=== PATIENT | female | born 1990 | race Two or more races ===

== ENCOUNTER → 2024-07-14 | Outpatient (CLI) | payer OTHER, MEDICAID, SELFPAY ==
--- NOTE | 2024-07-14 16:55 | XR_ITS ---
Examination: PA lateral chest 2 views Technique: Upright PA lateral chest 2 views Exam date and time: July 15, 2024 1703 hrs. Indications: Chest pain beginning 2 weeks ago. Findings: Normal heart size Lungs are clear. Mild diffuse thoracic degenerative disc disease Impression: No active disease
== END | disposition home or self-care (01) ==
LOC: CDIM 16:50
PROVIDERS: PCP Obstetrics & Gynecology; Referring Provider Obstetrics & Gynecology; Visit Provider Obstetrics & Gynecology
DX: R07.89 Other chest pain (principal)
CPT/HCPCS: 71046

== ENCOUNTER 2024-09-02 13:10 | Outpatient (AMB) | payer OTHER, MEDICAID, SELFPAY ==
[2024-09-02 13:26] VITALS: BP 112/68; PULSE 58; RESP 18; TEMP 36.2; O2SAT 98; BMI 29.1
--- NOTE | 2024-09-02 13:26 | AMB.OBINITIA ---
Vital Signs 09/02/24 13:26 Height 1.68 m Height Method Stated Weight 82.27 kg Weight Measurement Method Standing Scale BMI 29.1 BP 112/68 Blood Pressure Source Automatic Cuff Blood Pressure Location Left Upper Arm Position Sitting Respiration 18 Pulse 58 L Pulse Source Monitor Temp 97.2 F Temp Source Oral Pulse Oximetry (%) 98 Oxygen Delivery Method Room Air Allergies/Home Meds Allergies & Medications Allergies Penicillins Allergy (Intermediate, Verified 09/02/24 13:27) FAINTS Medication Reconciliation docusate sodium 100 mg capsule (Colace) 100 mg PO BID #60 caps 03/24/22 [Rx Confirmed 09/02/24] hydrocortisone 2.5 % topical cream with perineal applicator (Proctosol HC) 1 applic MN QDAY PRN hemorrhoids #30 appful 03/24/22 [Rx Confirmed 09/02/24] ibuprofen 800 mg tablet 800 mg PO Q6H PRN pain #90 tabs 03/24/22 [Rx Confirmed 09/02/24] lanolin 50 % topical ointment 1 applic topical TID PRN skin irritation #15 tubes 03/24/22 [Rx Confirmed 09/02/24] witch dorie 50 % topical pads (Tucks (witch dorie)) 1 pad topical BID #100 ea 03/24/22 [Rx Confirmed 09/02/24] Intake Visit Data Collection New Patient or Established: Established Patient (seen at [facility] within 3 years) Reason for Visit:: OBI Seen by Clinical Staff ONLY (RN/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 1. Little interest or pleasure in doing things: not at all 2. Feeling down, depressed, or hopeless: not at all Total score: 0 PHQ-9 3. Trouble falling or staying asleep, or sleeping too much: Not at all 4. Feeling tired or having little energy: Not at all 5. Poor appetite or overeating: Not at all 6. Feeling bad about yourself - or that you are a failure or have let yourself or your family down: Not at all 7. Trouble concentrating on things, such as reading the newspaper or watching television: Not at all 8. Moving or speaking so slowly that other people could have noticed? - Or the opposite - being so fidgety or restless that you have been moving around a lot more than usual: not at all 9. Thoughts that you would be better off or of hurting yourself in some way: Not at all Total score: 0 If you checked off any problems, how difficult have these problems made it for you to do your work, take care of things at home, or get along with other people?: not difficult at all Source: Developed by Drs. Francisco German, Jasmin Machado, David Anne and colleagues, with an educational marlon from [employer]. Depression screen completed yes Social History Living Situation History Marital Status: Lives With: Family Housing: House Tobacco History Smoking Status: Never smoker Second Hand Smoke Exposure: No Alcohol History Alcohol Intake: Never Domestic Abuse History Do You Feel Safe at Home: Yes History of Present Illness HPI Narrative Evelin Venegas is a 34-year-old 4 para 3003 who presents for her first early visit after a positive home test. She reports her last menstrual period started on July 02, 2024, placing her at 8 weeks and 6 days gestation with an estimated due date of April 08, 2025. The patient has a history of three prior full-term vaginal deliveries. She required fertility treatment for her first in 2017 but denies any other major gynecologic history or problems during her previous pregnancies. Evelin mentions a history of polycystic ovary syndrome (PCOS), which has caused irregular menstrual cycles in the past. She notes that for the six months prior to this , her cycles were regular with an average length of 32 days. Evelin reports mild nausea, particularly when she goes without food for a while. She denies any severe symptoms at this time. She is currently taking vitamins. During her last , she was close to developing gestational diabetes but was managed with diet alone and did not require medication. Obstetric History - GTPAL: G4 T3 L3 - Current : - Gestational age: 8 weeks 6 days by last menstrual period - Estimated due date: April 08, 2025 - history: - 3 prior vaginal deliveries, all at full term - Last : Close to having gestational diabetes, managed with diet only - First in 2017: Required fertility treatment Medical History - Polycystic ovary syndrome (PCOS) Medications and Supplements - vitamins Social History - Children: Has three children aged 6, 4, and 2 years old Review of Systems Gastrointestinal: Positive for mild nausea when going without food for a while. 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 Medical History Past Medical History: No Hx Neurological Disorders, No Hx Breast Cancer, No Hx Cardiac Disorders, No Hx Cancer, No Hx Blood Disorders, No Hx Anemia, No Hx Gastrointestinal Disorders, No Hx Renal Disease, No Hx Diabetes Mellitus Type 1 and No Hx Diabetes Mellitus Type 2 OB Initial Visit Menstrual History Menstrual reliability: definite Flow: normal Menstrual regularity: regular Monthly: Yes Age at menarche: 14 On control pills at conception: No OB History : 4 Para: 3 Hx # Pregnancies: 0 Hx Total # of Abortions (Spontaneous & Elective): 0 # of Living Children: 3 Delivery History 1st : date: 02/12/18 sex: female Delivery type: vaginal weight (lbs): 3628.739 g weight (oz): 56.699 g History of depression before or after : No 2nd : date: 12/15/19 sex: female Delivery type: vaginal weight (lbs): 3175.147 g weight (oz): 28.35 g History of depression before or after : No 3rd : date: 03/21/22 sex: female Delivery type: vaginal weight (oz): 3628.739 g Infection History & Risk Evaluation History of STDs: none HIV risk evaluation: low risk Hepatitis B risk evaluation: low risk Patient or partner has history of Genital Herpes: No Varicella/chicken pox status: immunized Genetic Screening & History Genetic Screening/Teratology Counseling - Includes patient, baby's father, or anyone in either family with: 1. Patient's age 35 years or older as of estimated date of delivery: No 2. Thalassemia (Panamanian, Estonian, Mediterranean, or Background); MCV less than 80: No 3. Neural Tube Defect (Meningomyelocele, Spina Bifida, or Anencephaly): No 4. Congenital Heart Defect: No 5. Down Syndrome: No 6. Ziyad-Sachs (Ashkenazi Alevism, Cajun, [place]): No 7. Shelton Disease (Ashkenazi Alevism): No 8. Familial Dysautonomia (Ashkenazi Alevism): No 9. Sickle Cell Disease or Trait (): No 10. Hemophilia or other blood disorders: No 11. Muscular Dystrophy: No 12. Cystic Fibrosis: No 13. [place]'s Chorea: No 14. Mental Retardation/Autism: No 15. Other inherited genetic or chromosomal disorder: No 16. Maternal Metabolic Disorder (EG,TYPE 1 Diabetes, PKU): No 17. Patient or baby's father had a child with defects not listed above: No 18. Recurrent loss or a stillbirth: No 19. Medications (including supplements, vitamins, herbs or otc drugs)/illicit/recreational drugs/alcohol since last menstrual period: No 20. Any other: No Infection History 1. Live with someone with TB or exposed to TB: No 2. Rash or viral illness since last menstrual period: No 3. Hepatitis B,C: No Other (see comments) Source: [employer] Review of Systems Review of Systems Systems Reviewed: All systems reviewed, normal except as documented Exam General General Appearance: alert, in no apparent distress and healthy appearing Head Head exam: atraumatic Neck Neck exam: Present normal inspection and trachea midline Chest Chest inspection: Present normal inspection and symmetric chest wall rise External exam: Present normal external exam; Absent tenderness Neuro Neurological exam: Present oriented X3 Psych Psychiatric exam: Present normal affect and normal mood Office Procedures OB Clinic LOC & Office Proc's Nursing/Assessment Patient Status: Established Patient OB Clinic Nursing Assessment: Medication Reconciliation, Update PMH in EMR and Vital Signs OB Clinic Coordination of Care: Education Complex Pt/Fam, Consent,records obtained, informed consent, Lab and Imaging orders, Results/Orders obtained and Staff clarify orders Established Patient Charge Established Patient Point Assignment: 85 Established Patient Point Charge: EP Level 3 (80-115) Assessment & Plan Diagnosis / Problem List (1) Supervision of high risk , unspecified, first trimester: Status: Acute Plan Evelin Venegas is a 34-year-old presenting for early visit with positive home test, history of 3 prior full-term vaginal deliveries, and PCOS. Intrauterine Assessment: Patient reports positive home test. LMP on July 04, 2024, placing her at 8 weeks and 6 days gestation with MERI of April 08, 2025. However, portable ultrasound shows measurements consistent with 7 weeks and 3 days gestation. heartbeat visualized at 164 bpm, which is within normal range. Patient has history of PCOS with irregular cycles, which may account for the discrepancy between LMP-based and ultrasound-based gestational age. Further evaluation with a formal ultrasound is needed to confirm accurate dating. Plan: - Order formal ultrasound for accurate dating - Order comprehensive labs including genetic screening - Continue vitamins - Scheduled follow-up appointment to review ultrasound and lab results History of gestational diabetes Assessment: Patient reports being close to developing gestational diabetes during her last but was managed with diet alone without requiring medication. Given this history, she may be at increased risk for gestational diabetes in the current . Plan: - Monitor for signs of gestational diabetes during care - Include glucose screening in lab panel Mild nausea Assessment: Patient reports experiencing nausea when going without food for a while, but denies severe symptoms. Plan: - Recommend frequent small meals to manage nausea - Monitor symptoms and reassess need for anti-emetic medication at follow-up visits
== END 2024-09-02 14:04 | disposition home or self-care (01) ==
LOC: HODSOBC 13:10
PROVIDERS: PCP Obstetrics & Gynecology; Referring Provider Obstetrics & Gynecology; Supervising Provider Obstetrics & Gynecology; Visit Provider Obstetrics & Gynecology
DX: O09.291 Supervision of pregnancy with other poor reproductive or obstetric history, first trimester (principal); Z3A.08 8 weeks gestation of pregnancy; Z86.32 Personal history of gestational diabetes; Z88.0 Allergy status to penicillin
CPT/HCPCS: 76801; 99213; G0463

== ENCOUNTER → 2024-09-02 | Outpatient (CLI) | payer OTHER, MEDICAID, SELFPAY ==
--- NOTE | 2024-09-02 14:22 | XR_ITS ---
Examination: Complete OB ultrasound, less than 14 weeks, transabdominal Date and time of exam: September 02, 2024 1439 hours INDICATIONS: Positive test at the doctor's office today, assess viability Technique: Obstetrical ultrasound images less than 14 weeks performed via transabdominal imaging Findings: A normal shaped single intrauterine gestation is present in the uterus. pole 1.2 cm corresponds to 7 weeks 3 days gestational age Cardiac motion 160 BPM Intrauterine fundal area of fibroid degeneration 3.0 x 2.4 x 2.6 cm Ultrasonographic survey of visible and placental structures unremarkable. Amniotic fluid volume appears appropriate for this estimated gestational age. Right ovary 3.1 cm arterial flow Left ovary 3.0 cm arterial flow IMPRESSION: Viable intrauterine gestation 7 weeks 3 days.
== END | disposition home or self-care (01) ==
PROVIDERS: PCP Pediatrics Pediatric Rheumatology; Referring Provider Pediatrics Pediatric Rheumatology; Visit Provider Pediatrics Pediatric Rheumatology
DX: O36.80X0 Pregnancy with inconclusive fetal viability, not applicable or unspecified (principal); Z3A.01 Less than 8 weeks gestation of pregnancy
CPT/HCPCS: 76801

== ENCOUNTER 2024-10-07 15:23 | Outpatient (AMB) | payer OTHER, MEDICAID, SELFPAY ==
[2024-10-07 15:36] VITALS: BP 111/72; PULSE 62; RESP 17; TEMP 36.7; O2SAT 98; BMI 29.5
--- NOTE | 2024-10-07 15:36 | AMB.OBVISIT ---
Vital Signs 10/07/24 15:36 Height 1.68 m Height Method Stated Weight 83.178 kg Weight Measurement Method Standing Scale BMI 29.5 BP 111/72 Blood Pressure Source Automatic Cuff Blood Pressure Location Right Upper Arm Position Sitting Respiration 17 Pulse 62 Pulse Source Monitor Temp 98.1 F Temp Source Temporal Artery Scan Pulse Oximetry (%) 98 Oxygen Delivery Method Room Air Allergies/Home Meds Allergies & Medications Allergies Penicillins Allergy (Intermediate, Verified 10/07/24 15:37) FAINTS Medication Reconciliation ondansetron 4 mg disintegrating tablet 4 mg PO Q6H PRN nausea and vomiting 30 days #120 tabs 10/01/24 [Rx Confirmed 10/07/24] nitrofurantoin macrocrystal 100 mg capsule 100 mg PO BID 7 days #14 caps 10/07/24 [Rx] promethazine 25 mg tablet 25 mg PO QHS PRN nausea and vomiting 30 days #30 tabs 10/07/24 [Rx] Intake Visit Data Collection New Patient or Established: Established Patient (seen at [facility] within 3 years) Reason for Visit:: OBC Seen by Clinical Staff ONLY (RN/MA): No 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 1. Little interest or pleasure in doing things: not at all 2. Feeling down, depressed, or hopeless: not at all Total score: 0 PHQ-9 3. Trouble falling or staying asleep, or sleeping too much: Not at all 4. Feeling tired or having little energy: Not at all 5. Poor appetite or overeating: Not at all 6. Feeling bad about yourself - or that you are a failure or have let yourself or your family down: Not at all 7. Trouble concentrating on things, such as reading the newspaper or watching television: Not at all 8. Moving or speaking so slowly that other people could have noticed? - Or the opposite - being so fidgety or restless that you have been moving around a lot more than usual: not at all 9. Thoughts that you would be better off or of hurting yourself in some way: Not at all Total score: 0 If you checked off any problems, how difficult have these problems made it for you to do your work, take care of things at home, or get along with other people?: not difficult at all Source: Developed by Drs. Francisco German, Jasmin Machado, David Anne and colleagues, with an educational marlon from [employer]. 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 Patient reports cramping, nausea, or abdominal pain. Denies PURI, VC, and epigastric pain. - Evelin Venegas is a 34-year-old female, 4 para 3, presenting for a visit at 13 weeks and 6 days gestation. - Initial labs and screening have been performed, including: - Non-invasive testing (NIPT) - Blood typing and antibody screening - Infectious disease screening - Urine culture Care OB Visit Log OB Flowsheet Initial Weight: Not Recorded Date <del>?</del> EGA Weight BP Alb Glu CTX Pres Fundal ht FHR Mov Dilation Station Effacement Hx Notes Visit Note 10/07/24 <del>?</del> 13w 6d 83.178 kg 111/72 145 13w6d here for routine visit. IUP confirmed. NIPT pending. Labs reviewed: blood type O+, Ab screen neg, rubella immune, GC/CT neg, Hep B/C neg, RPR non-reactive. UA c/s positive for Enterococcus. Treat UTI per sensitivity, continue routine OB care, review NIPT when available. MERI Calculator Estimated Delivery Date Method Current WG Current Estimate 04/08/25 LMP (Certain) 13w 6d Other Estimates 04/18/25 Ultrasound #1 12w 3d Specific Issue/Plans Laboratory, Imaging, and Diagnostic Test Results - Initial labs: - Blood group: O positive - Antibody screen: Negative - Hepatitis B: Negative - Hepatitis C: Negative - RPR: Non-reactive - Rubella: Immune - Gonorrhea: Negative - Chlamydia: Negative - NIPT: Performed (results not specified) - Urine culture: Positive for Enterococcus (sensitivity list available) Exam General General Appearance: alert, in no apparent distress and healthy appearing Head Head exam: atraumatic Neck Neck exam: Present normal inspection and trachea midline Chest Chest inspection: Present normal inspection and symmetric chest wall rise External exam: Present normal external exam; Absent tenderness Neuro Neurological exam: Present oriented X3 Psych Psychiatric exam: Present normal affect and normal mood Office Procedures OB Clinic LOC & Office Proc's Nursing/Assessment Patient Status: Established Patient OB Clinic Nursing Assessment: Medication Reconciliation, Update PMH in EMR and Vital Signs OB Clinic Coordination of Care: Complex Care and Chronic Disease 1-5, Consent,records obtained, informed consent, Education Simp Pt/Fam, Results/Orders obtained and Staff clarify orders Special Needs: Heart tones Established Patient Charge Established Patient Point Assignment: 120 Established Patient Point Charge: EP Level 4 (120-155) Assessment & Plan Diagnosis / Problem List (1) UTI in : Status: Acute (2) Supervision of high risk , unspecified, first trimester: Status: Acute (3) Hyperemesis affecting , antepartum: Status: Acute (4) Hypothyroidism affecting , antepartum: Status: Acute (5) Sleep apnea in adult: Status: Acute Plan Evelin Venegas is a 34-year-old female at 13 weeks and 6 days gestation presenting for a visit with initial labs completed. Intrauterine at 13 weeks 6 days gestation Assessment: Patient is a 34-year-old at 13 weeks and 6 days gestation presenting for routine care. Initial labs have been performed, including NIPT. Blood type is O positive with a negative antibody screen. Patient is rubella immune. Gonorrhea and chlamydia testing is negative. Hepatitis B and C testing is negative. RPR is non-reactive. Plan: - Review NIPT results when available - Monitor progression - Continue routine care Positive urine culture for Enterococcus Assessment: Urine culture shows growth of Enterococcus species with a sensitivity list provided. Plan: - Review antibiotic sensitivity results - Initiate appropriate antibiotic treatment based on sensitivity - Follow up on treatment efficacy
== END 2024-10-07 16:22 | disposition home or self-care (01) ==
LOC: HODSOBC 15:23
PROVIDERS: PCP Pediatrics Pediatric Rheumatology; Referring Provider Pediatrics Pediatric Rheumatology; Supervising Provider Obstetrics & Gynecology; Visit Provider Obstetrics & Gynecology
DX: O09.891 Supervision of other high risk pregnancies, first trimester (principal); Z3A.13 13 weeks gestation of pregnancy; O23.41 Unspecified infection of urinary tract in pregnancy, first trimester; N39.0 Urinary tract infection, site not specified; B95.2 Enterococcus as the cause of diseases classified elsewhere; O21.0 Mild hyperemesis gravidarum; O99.281 Endocrine, nutritional and metabolic diseases complicating pregnancy, first trimester; E03.9 Hypothyroidism, unspecified; O99.351 Diseases of the nervous system complicating pregnancy, first trimester; G47.30 Sleep apnea, unspecified; Z88.0 Allergy status to penicillin
CPT/HCPCS: 99214; G0463

== ENCOUNTER 2024-11-04 13:53 | Outpatient (AMB) | payer OTHER, MEDICAID, SELFPAY ==
[2024-11-04 14:06] VITALS: BP 113/71; PULSE 60; RESP 17; TEMP 36.9; O2SAT 98; BMI 30.5
--- NOTE | 2024-11-04 14:06 | OBCLNT_ITS ---
Vital Signs 11/04/24 14:06 Height 1.68 m Height Method Stated Weight 86.296 kg Weight Measurement Method Standing Scale BMI 30.5 BP 113/71 Blood Pressure Source Automatic Cuff Blood Pressure Location Right Upper Arm Position Sitting Respiration 17 Pulse 60 Pulse Source Monitor Temp 98.4 F Temp Source Temporal Artery Scan Pulse Oximetry (%) 98 Oxygen Delivery Method Room Air Allergies/Home Meds Allergies & Medications Allergies Penicillins Allergy (Intermediate, Verified 12/31/24 15:58) FAINTS Medication Reconciliation levothyroxine 50 mcg tablet 50 mcg PO QDAY 30 days #30 tabs 11/05/24 [Rx Confirmed 12/31/24] Intake Visit Data Collection New Patient or Established: Established Patient (seen at [facility] within 3 years) Reason for Visit:: obc 17w6d / lab results Seen by Clinical Staff ONLY (RN/MA): No Artistic Director Required: No Do You Feel Safe at Home: Yes Authorities Contacted: N/A PCP or OBGYN visit in last 3 months: Yes Hx Now: Yes Are you currently on any form of Control: No Pain Present Currently: No Pain Scale Used: De Leon-Villareal/Numerical Pain scale:: 0 Smoking Status Smoking Status: Never smoker Questionnaires Covid-19 Vaccine Questionnaire Has patient been vacinated for Covid-19 Have you been vacinated for Covid-19: No PHQ-9 PHQ-2 Over the last 2 weeks, how often have you been bothered by any of the following problems? 1. Little interest or pleasure in doing things: not at all 2. Feeling down, depressed, or hopeless: not at all Total score: 0 PHQ-9 3. Trouble falling or staying asleep, or sleeping too much: Not at all 4. Feeling tired or having little energy: Not at all 5. Poor appetite or overeating: Not at all 6. Feeling bad about yourself - or that you are a failure or have let yourself or your family down: Not at all 7. Trouble concentrating on things, such as reading the newspaper or watching television: Not at all 8. Moving or speaking so slowly that other people could have noticed? - Or the opposite - being so fidgety or restless that you have been moving around a lot more than usual: not at all 9. Thoughts that you would be better off or of hurting yourself in some way: Not at all Total score: 0 If you checked off any problems, how difficult have these problems made it for you to do your work, take care of things at home, or get along with other people?: not difficult at all Source: Developed by Drs. Francisco German, Jasmin Machado, David Anne and colleagues, with an educational marlon from [employer]. 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 IUP confirmed. NIPT pending. Labs reviewed: blood type O+, Ab screen neg, rubella immune, GC/CT neg, Hep B/C neg, RPR non-reactive. UA c/s positive for Enterococcus. Treat UTI per se nsitivity, continue routine OB care, review NIPT when available. 11/04/24 -?-?-?-?-?-?-?-?-?-?-?-?- 17w 6d 86.296 kg 113/71 absent unknown 155 - Thyroid medication: - Stopped [employer] SU[employer]IST Thyroid in April- ry due to side effects (cold feet and hands) - Not currently on thyroid medication - Sleep apnea: - Recently diagnosed with mild sleep a pnea - Using CPAP machine - Reports history of PCOS - Start levothyroxine 50 mcg daily - Repeat thyroid function tests in 4 wee ks - Refer to maternal- medicine speci alist for thyroid management during - Add thyroid consult to existing appoin tment at [facility] on December 02 - Follow up in 4 weeks - Continue using CPAP machine for sleep apnea; adjust settings post-delivery - Manage PCOS in OB setting - Prescription to be filled at [facility] on [address] 12/02/24 -?-?-?-?-?-?-?-?-?--?-?-?- 21w 6d 87.09 kg 113/63 absent 145 at 21 weeks 6 days gestation, with ultrasound confirming appropriate growth (378 grams) and normal anatomy survey. Cervix measured 4.2 cm, indicating low risk for labor. Placenta posterior, no previa. position cephalic. Thyroid function tests reveal elevated TSH and low free T4, indicating suboptimal control of pre- existing hypothyroidism on current 50 mcg dose. Patient reports improved overall well-being. Rash noted on back, possibly heat-related or acne. History of sleep apnea managed with CPAP. heart rate 145 bpm. Plan - Recheck TSH, free T4, and A1c today - Lab slip provided for TSH, free T4, an d A1c - Follow-up ultrasound in 6 weeks - Follow-up appointment scheduled for [facility] - Follow-up in 4 weeks unless labs are a bnormal 12/31/24 -?-?-?-?-?-?-?-?-?-?-?-?- 26w 0d 89.471 kg 102/63 absent unknown 27 152 active - She reports being in the process of getting fitted for CPAP, having been contacted last week for the fitting. - Patient reports occasional episodes of lightheadedness. - She checks her blood pressure when f eeling lightheaded and notes it is usually on the lower end. - The lowest systolic blood pressure s he has recorded at home is 105 mmHg with diastolic readings ranging from 49-70 mmHg. - She reports good adherence to her pres cribed medications including levothyroxine, vitamins, and vitamin D. - Patient denies restricting salt intake and reports eating normal foods. - She [facility] views that could not be completed due to positioning. - Return for [facility] ultrasound on September 14, 2024 to complete anatomy survey - Continue current medications: levothyr oxine, vitamins, and vitamin D - Increase electrolyte and sodium intake , consider using liquid IV once daily - Maintain adequate fluid intake - Follow-up appointment in 4 weeks - Subsequent appointments will be every 2 weeks after the next visit - Labs to be done at next appointment MERI Calculator Estimated Delivery Date Method Current WG Current Estimate 04/08/25 LMP (Certain) 27w 6d Other Estimates 04/18/25 Ultrasound #1 26w 3d Specific Issue/Plans Laboratory, Imaging, and Diagnostic Test Results - Initial labs: - Blood group: O positive - Antibody screen: Negative - Hepatitis B: Negative - Hepatitis C: Negative - RPR: Non-reactive - Rubella: Immune - Gonorrhea: Negative - Chlamydia: Negative - NIPT: Performed (results not specified) - Urine culture: Positive for Enterococcus (sensitivity list available) Notes Visit Date: 12/31/24 Last Updated by: Otto Bruno MD Laboratory, Imaging, and Diagnostic Test Results - Hemoglobin A1c: 5.5 - TSH: 2.5 (target <4.5 in ) - Free T4: 0.78 - MFM ultrasound (September 08, 2024): - Single fetus at 20 weeks 3 days gestation - Composite gestational age by ultrasound: 20 weeks 6 days - Largest amniotic fluid pocket: 3.9 cm - Anatomy survey: within normal limits except suboptimal views due to position and maternal body habitus - Cervical length (transvaginal): 4.23 cm - Posterior placenta, no previa - Cephalic presentation - Normal uterus and adnexa Visit Date: 12/02/24 Last Updated by: Otto Bruno MD Dec 02 2024 - Ultrasound: - weight: 378 grams (appropriate for 21 weeks) - Anatomy survey: Normal - Cervix length: 4.2 cm - Placenta: Posterior, no previa - position: Head down - Uterus and ovaries: Normal - heart rate: 145 bpm Problem List - , 21 weeks and 6 days - Hypothyroidism - Sleep apnea - Abnormal thyroid function test Assessment & Plan Diagnosis / Problem List (1) Hypothyroidism affecting , antepartum: Status: Acute Plan Problem List - Hypothyroidism - - Obstructive sleep apnea, mild - Polycystic ovary syndrome Assessment Hypothyroidism: Patient presents with low T4 and high TSH levels, consistent with hypothyroidism. Previously on [employer] SU[employer]CIALIST Thyroid, discontinued in April-May due to side effects. status necessitates switch to levothyroxine. Mild sleep apnea: Diagnosed via sleep study, patient using CPAP machine. PCOS: Noted as a condition to be addressed in OB. Normal protein albumin levels for . Plan - Start levothyroxine 50 mcg daily - Repeat thyroid function tests in 4 weeks - Refer to maternal- medicine specialist for thyroid management during - Add thyroid consult to existing appointment at [facility] on December 02 - Follow up in 4 weeks - Continue using CPAP machine for sleep apnea; adjust settings post-delivery - Manage PCOS in OB setting - Prescription to be filled at [facility] on [address]. Progress Reviewed gestational age, growth, and heart rate. Planned frequent visits (every 2 weeks until 36 weeks, then weekly). 2. Instructed patient to monitor movements and report decreases immediately. 3. Testing Counseled on routine third-trimester labs per guidelines. Discussed potential need for ultrasound or monitoring based on risk factors. 4. Preeclampsia Precaution Educated on preeclampsia signs: severe headache, vision changes, right upper quadrant pain, sudden swelling. Advised urgent reporting of symptoms and discussed blood pressure monitoring if high risk. 5. Labor Precautions Reviewed labor signs: regular contractions, pelvic pressure, back pain, bleeding, or fluid leakage. Instructed to seek immediate care for these symptoms. 6. Lifestyle and Delivery Preparation Reinforced vitamins, nutrition, and safe activity. Discussed plan, pain management, and . Advised on labor preparation (e.g., hospital bag) and expectations. 7. Psychosocial Support Assessed emotional well-being and offered resources for mental health or parenting support.
== END 2024-11-04 14:51 | disposition home or self-care (01) ==
LOC: HODSOBC 13:53
PROVIDERS: PCP Pediatrics Pediatric Rheumatology; Referring Provider Pediatrics Pediatric Rheumatology; Supervising Provider Obstetrics & Gynecology; Visit Provider Obstetrics & Gynecology
DX: O09.892 Supervision of other high risk pregnancies, second trimester (principal); O99.282 Endocrine, nutritional and metabolic diseases complicating pregnancy, second trimester; E28.2 Polycystic ovarian syndrome; E03.9 Hypothyroidism, unspecified; G47.33 Obstructive sleep apnea (adult) (pediatric); O99.352 Diseases of the nervous system complicating pregnancy, second trimester; Z3A.17 17 weeks gestation of pregnancy; Z99.89 Dependence on other enabling machines and devices; Z79.890 Hormone replacement therapy; Z88.0 Allergy status to penicillin
CPT/HCPCS: 99214; G0463

== ENCOUNTER 2024-12-02 15:01 | Outpatient (AMB) | payer OTHER, MEDICAID, SELFPAY ==
[2024-12-02 15:21] VITALS: BP 113/63; PULSE 67; RESP 16; TEMP 36.2; O2SAT 98; BMI 30.8
--- NOTE | 2024-12-02 15:21 | AMB.OBVISIT ---
Vital Signs 12/02/24 15:21 Height 1.68 m Height Method Stated Weight 87.09 kg Weight Measurement Method Standing Scale BMI 30.8 BP 113/63 Blood Pressure Source Automatic Cuff Blood Pressure Location Left Upper Arm Position Sitting Respiration 16 Pulse 67 Pulse Source Monitor Temp 97.2 F Temp Source Oral Pulse Oximetry (%) 98 Oxygen Delivery Method Room Air Allergies/Home Meds Allergies & Medications Allergies Penicillins Allergy (Intermediate, Verified 12/02/24 15:22) FAINTS Medication Reconciliation levothyroxine 50 mcg tablet 50 mcg PO QDAY 30 days #30 tabs 11/05/24 [Rx Confirmed 12/02/24] Intake Visit Data Collection New Patient or Established: Established Patient (seen at [facility] within 3 years) Reason for Visit:: obc Seen by Clinical Staff ONLY (RN/MA): No Media/Instructional Designer Required: No Do You Feel Safe at Home: Yes Authorities Contacted: N/A PCP or OBGYN visit in last 3 months: Yes Date of Last PCP or OBGYN visit: 11/04/24 Hx Now: Yes Are you currently on any form of Control: No Pain Present Currently: No Pain Scale Used: De Leon-Villareal/Numerical Pain scale:: 0 Smoking Status Smoking Status: Never smoker Questionnaires Covid-19 Vaccine Questionnaire Has patient been vacinated for Covid-19 Have you been vacinated for Covid-19: Yes PHQ-9 PHQ-2 Over the last 2 weeks, how often have you been bothered by any of the following problems? 1. Little interest or pleasure in doing things: not at all 2. Feeling down, depressed, or hopeless: not at all Total score: 0 PHQ-9 3. Trouble falling or staying asleep, or sleeping too much: Not at all 4. Feeling tired or having little energy: Not at all 5. Poor appetite or overeating: Not at all 6. Feeling bad about yourself - or that you are a failure or have let yourself or your family down: Not at all 7. Trouble concentrating on things, such as reading the newspaper or watching television: Not at all 8. Moving or speaking so slowly that other people could have noticed? - Or the opposite - being so fidgety or restless that you have been moving around a lot more than usual: not at all 9. Thoughts that you would be better off or of hurting yourself in some way: Not at all Total score: 0 If you checked off any problems, how difficult have these problems made it for you to do your work, take care of things at home, or get along with other people?: not difficult at all Source: Developed by Drs. Francisco German, Jasmin Machado, David Anne and colleagues, with an educational marlon from [employer]. 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 IUP confirmed. NIPT pending. Labs reviewed: blood type O+, Ab screen neg, rubella immune, GC/CT neg, Hep B/C neg, RPR non-reactive. UA c/s positive for Enterococcus. Treat UTI per sensitivity, continue routine OB care, review NIPT when available. 12/02/24 <del>?</del> 21w 6d 87.09 kg 113/63 absent 145 at 21 weeks 6 days gestation, with ultrasound confirming appropriate growth (378 grams) and normal anatomy survey. Cervix measured 4.2 cm, indicating low risk for labor. Placenta posterior, no previa. position cephalic. Thyroid function tests reveal elevated TSH and low free T4, indicating suboptimal control of pre-existing hypothyroidism on current 50 mcg dose. Patient reports improved overall well-being. Rash noted on back, possibly heat-related or acne. History of sleep apnea managed with CPAP. heart rate 145 bpm. Plan - Recheck TSH, free T4, and A1c today - Lab slip provided for TSH, free T4, and A1c - Follow-up ultrasound in 6 weeks - Follow-up appointment scheduled for January 14 - Follow-up in 4 weeks unless labs are abnormal MERI Calculator Estimated Delivery Date Method Current WG Current Estimate 04/08/25 LMP (Certain) 22w 0d Other Estimates 04/18/25 Ultrasound #1 20w 4d Specific Issue/Plans Laboratory, Imaging, and Diagnostic Test Results - Initial labs: - Blood group: O positive - Antibody screen: Negative - Hepatitis B: Negative - Hepatitis C: Negative - RPR: Non-reactive - Rubella: Immune - Gonorrhea: Negative - Chlamydia: Negative - NIPT: Performed (results not specified) - Urine culture: Positive for Enterococcus (sensitivity list available) Notes Visit Date: 12/02/24 Last Updated by: Otto Bruno MD Dec 02 2024 - Ultrasound: - weight: 378 grams (appropriate for 21 weeks) - Anatomy survey: Normal - Cervix length: 4.2 cm - Placenta: Posterior, no previa - position: Head down - Uterus and ovaries: Normal - heart rate: 145 bpm Problem List - , 21 weeks and 6 days - Hypothyroidism - Sleep apnea - Abnormal thyroid function test Office Procedures OB Clinic LOC & Office Proc's Nursing/Assessment Patient Status: Established Patient OB Clinic Nursing Assessment: Medication Reconciliation and Update PMH in EMR OB Clinic Coordination of Care: Education Complex Pt/Fam, Consent,records obtained, informed consent, Lab and Imaging orders and Staff clarify orders Special Needs: Heart tones Established Patient Charge Established Patient Point Assignment: 95 Established Patient Point Charge: EP Level 3 (80-115) Assessment & Plan Diagnosis / Problem List (1) Sleep apnea in adult: Status: Acute (2) Hypothyroidism affecting , antepartum: Status: Acute (3) Hyperemesis affecting , antepartum: Status: Acute
== END 2024-12-02 15:56 | disposition home or self-care (01) ==
LOC: HODSOBC 15:01
PROVIDERS: Supervising Provider Obstetrics & Gynecology; Visit Provider Obstetrics & Gynecology
DX: O09.892 Supervision of other high risk pregnancies, second trimester (principal); O99.282 Endocrine, nutritional and metabolic diseases complicating pregnancy, second trimester; E03.9 Hypothyroidism, unspecified; O21.0 Mild hyperemesis gravidarum; O99.352 Diseases of the nervous system complicating pregnancy, second trimester; G47.30 Sleep apnea, unspecified; Z3A.21 21 weeks gestation of pregnancy; Z79.890 Hormone replacement therapy; Z88.0 Allergy status to penicillin
CPT/HCPCS: 99213; G0463

== ENCOUNTER 2024-12-31 15:39 | Outpatient (AMB) | payer OTHER, MEDICAID, SELFPAY ==
[2024-12-31 15:58] VITALS: BP 102/63; PULSE 62; RESP 17; TEMP 36.7; O2SAT 98; BMI 31.6
--- NOTE | 2024-12-31 15:58 | OBCLNT_ITS ---
Vital Signs 12/31/24 15:58 Height 1.68 m Height Method Stated Weight 89.471 kg Weight Measurement Method Standing Scale BMI 31.6 BP 102/63 Blood Pressure Source Automatic Cuff Blood Pressure Location Right Upper Arm Position Sitting Respiration 17 Pulse 62 Pulse Source Monitor Temp 98.0 F Temp Source Temporal Artery Scan Pulse Oximetry (%) 98 Oxygen Delivery Method Room Air Allergies/Home Meds Allergies & Medications Allergies Penicillins Allergy (Intermediate, Verified 12/31/24 15:58) FAINTS Medication Reconciliation levothyroxine 50 mcg tablet 50 mcg PO QDAY 30 days #30 tabs 11/05/24 [Rx Confirmed 12/31/24] Intake Visit Data Collection New Patient or Established: Established Patient (seen at [facility] within 3 years) Reason for Visit:: OBC Seen by Clinical Staff ONLY (RN/MA): No Assistant Housekeeping 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 1. Little interest or pleasure in doing things: not at all 2. Feeling down, depressed, or hopeless: not at all Total score: 0 PHQ-9 3. Trouble falling or staying asleep, or sleeping too much: Not at all 4. Feeling tired or having little energy: Not at all 5. Poor appetite or overeating: Not at all 6. Feeling bad about yourself - or that you are a failure or have let yourself or your family down: Not at all 7. Trouble concentrating on things, such as reading the newspaper or watching television: Not at all 8. Moving or speaking so slowly that other people could have noticed? - Or the opposite - being so fidgety or restless that you have been moving around a lot more than usual: not at all 9. Thoughts that you would be better off or of hurting yourself in some way: Not at all Total score: 0 If you checked off any problems, how difficult have these problems made it for you to do your work, take care of things at home, or get along with other people?: not difficult at all Source: Developed by Drs. Francisco German, Jasmin Machado, David Anne and colleagues, with an educational marlon from [employer]. 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 IUP confirmed. NIPT pending. Labs reviewed: blood type O+, Ab screen neg, rubella immune, GC/CT neg, Hep B/C neg, RPR non-reactive. UA c/s positive for Enterococcus. Treat UTI per se nsitivity, continue routine OB care, review NIPT when available. 12/02/24 -?-?-?-?-?-?-?-?-?-?-?-?- 21w 6d 87.09 kg 113/63 absent 145 at 21 weeks 6 days gestation, with ultrasound confirming appropriate growth (378 grams) and normal jazz antoni survey. Cervix measured 4.2 cm, indicating low risk for labor. Placenta posterior, no previa. position cephalic. Thyroid function tests reveal elevated TSH and low free T4, indicating suboptimal control of pre- existing hypothyroidism on current 50 mcg dose. Patient reports improved overall well-being. Rash noted on back, possibly heat-related or acne. History of sleep apnea managed with CPAP. heart rate 145 bpm. Plan - Recheck TSH, free T4, and A1c today - Lab slip provided for TSH, free T4, an d A1c - Follow-up ultrasound in 6 weeks - Follow-up appointment scheduled for [facility] - Follow-up in 4 weeks unless labs are a bnormal 12/31/24 -?-?-?-?-?-?-?-?-?-?-?-?- 26w 0d 89.471 kg 102/63 absent unknown 27 152 active - She reports being in the process of getting fitted for CPAP, having been contacted last week for the fitting. - Patient reports occasional episodes of lightheadedness. - She checks her blood pressure when f eeling lightheaded and notes it is usually on the lower end. - The lowest systolic blood pressure s he has recorded at home is 105 mmHg with diastolic readings ranging from 49-70 mmHg. - She reports good adherence to her pres cribed medications including levothyroxine, vitamins, and vitamin D. - Patient denies restricting salt intake and reports eating normal foods. - [facility] anatomy views that could not be completed due to positioning. - Return for [facility] ultrasound on September 14, 2024 to complete anatomy survey - Continue current medications: levothyr oxine, vitamins, and vitamin D - Increase electrolyte and sodium intake , consider using liquid IV once daily - Maintain adequate fluid intake - Follow-up appointment in 4 weeks - Subsequent appointments will be every 2 weeks after the next visit - Labs to be done at next appointment MERI Calculator Estimated Delivery Date Method Current WG Current Estimate 04/08/25 LMP (Certain) 26w 4d Other Estimates 04/18/25 Ultrasound #1 25w 1d Specific Issue/Plans Laboratory, Imaging, and Diagnostic Test Results - Initial labs: - Blood group: O positive - Antibody screen: Negative - Hepatitis B: Negative - Hepatitis C: Negative - RPR: Non-reactive - Rubella: Immune - Gonorrhea: Negative - Chlamydia: Negative - NIPT: Performed (results not specified) - Urine culture: Positive for Enterococcus (sensitivity list available) Notes Visit Date: 12/31/24 Last Updated by: Otto Bruno MD Laboratory, Imaging, and Diagnostic Test Results - Hemoglobin A1c: 5.5 - TSH: 2.5 (target <4.5 in ) - Free T4: 0.78 - MFM ultrasound (September 08, 2024): - Single fetus at 20 weeks 3 days gestation - Composite gestational age by ultrasound: 20 weeks 6 days - Largest amniotic fluid pocket: 3.9 cm - Anatomy survey: within normal limits except suboptimal views due to position and maternal body habitus - Cervical length (transvaginal): 4.23 cm - Posterior placenta, no previa - Cephalic presentation - Normal uterus and adnexa Visit Date: 12/02/24 Last Updated by: Otto Bruno MD Dec 02 2024 - Ultrasound: - weight: 378 grams (appropriate for 21 weeks) - Anatomy survey: Normal - Cervix length: 4.2 cm - Placenta: Posterior, no previa - position: Head down - Uterus and ovaries: Normal - heart rate: 145 bpm Problem List - , 21 weeks and 6 days - Hypothyroidism - Sleep apnea - Abnormal thyroid function test Office Procedures OBC Clinic LOC & Office Proc's Nursing/Assessment Patient Status: Established Patient OB Clinic Nursing Assessment: Medication Reconciliation, Update PMH in EMR and Vital Signs OB Clinic Coordination of Care: Complex Care and Chronic Disease 1-5, Education Complex Pt/Fam, Consent,records obtained, informed consent, Results/Orders obtained and Staff clarify orders Special Needs: Heart tones Established Patient Charge Established Patient Point Assignment: 125 Established Patient Point Charge: EP Level 4 (120-155) Assessment & Plan Diagnosis / Problem List (1) 26 weeks gestation of : Status: Acute (2) Obstructive sleep apnea (adult) (pediatric): Status: Acute (3) Hypothyroidism, unspecified: Status: Acute Plan Problem List - , 26 weeks and 0 days - Obstructive sleep apnea - Hypothyroidism Assessment 3 para 3 at 26 weeks 0 days gestation with a single fetus. Recent MFM ultrasound at 20 weeks 3 days showed normal anatomy survey with some suboptimal views due to body habitus. Cervix measured 4.23 cm transvaginally, indicating low risk for labor. Posterior placenta, no previa. Cephalic presentation with normal uterus and adnexa. Patient has a history of obstructive sleep apnea, awaiting CPAP fitting. Hypothyroidism, initially suboptimally controlled, now on 50mcg levothyroxine. Recent labs show TSH 2.5 and free T4 0.78, considered with in acceptable range for . A1c 5.5, negative for glucose screening. Patient reports occasional lightheadedness with low blood pressure readings, lowest systolic 105 and diastolic 49. Plan - Return for [facility] ultrasound on September 14, 2024 to complete anatomy survey - Continue current medications: levothyroxine, vitamins, and vitamin D - Increase electrolyte and sodium intake, consider using liquid IV once daily - Maintain adequate fluid intake - Follow-up appointment in 4 weeks - Subsequent appointments will be every 2 weeks after the next visit - Labs to be done at next appointment 1. Progress Reviewed gestational age, growth, and heart rate. Planned frequent visits (every 2 weeks until 36 weeks, then weekly). 2. Instructed patient to monitor movements and report decreases immediately. 3. Testing Counseled on routine third-trimester labs per guidelines. Discussed potential need for ultrasound or monitoring based on risk factors. 4. Preeclampsia Precaution Educated on preeclampsia signs: severe headache, vision changes, right upper quadrant pain, sudden swelling. Advised urgent reporting of symptoms and discussed blood pressure monitoring if high risk. 5. Labor Precautions Reviewed labor signs: regular contractions, pelvic pressure, back pain, bleeding, or fluid leakage. Instructed to seek immediate care for these symptoms. 6. Lifestyle and Delivery Preparation Reinforced vitamins, nutrition, and safe activity. Discussed plan, pain management, and . Advised on labor preparation (e.g., hospital bag) and expectations. 7. Psychosocial Support Assessed emotional well-being and offered resources for mental health or parenting support.
== END 2024-12-31 16:02 | disposition home or self-care (01) ==
LOC: HODSOBC 15:39
PROVIDERS: Supervising Provider Obstetrics & Gynecology; Visit Provider Obstetrics & Gynecology
DX: O09.892 Supervision of other high risk pregnancies, second trimester (principal); Z3A.26 26 weeks gestation of pregnancy; O99.352 Diseases of the nervous system complicating pregnancy, second trimester; G47.33 Obstructive sleep apnea (adult) (pediatric); O99.282 Endocrine, nutritional and metabolic diseases complicating pregnancy, second trimester; E03.9 Hypothyroidism, unspecified; Z79.890 Hormone replacement therapy; Z88.0 Allergy status to penicillin
CPT/HCPCS: 99214; G0463

== ENCOUNTER 2025-01-30 15:43 | Outpatient (AMB) | payer OTHER, MEDICAID, SELFPAY ==
--- NOTE | 2025-01-30 15:58 | OBCLNT_ITS ---
Vital Signs 01/30/25 15:59 Height 1.68 m Height Method Stated Weight 93.043 kg Weight Measurement Method Standing Scale BMI 32.9 BP 109/71 Blood Pressure Source Automatic Cuff Blood Pressure Location Left Upper Arm Position Sitting Respiration 18 Pulse 82 Pulse Source Monitor Temp 97.2 F Temp Source Oral Pulse Oximetry (%) 98 Oxygen Delivery Method Room Air Allergies/Home Meds Allergies & Medications Allergies Penicillins Allergy (Intermediate, Verified 12/31/24 15:58) FAINTS Medication Reconciliation levothyroxine 50 mcg tablet 50 mcg PO QDAY 30 days #30 tabs 01/30/25 [Rx] Intake Visit Data Collection New Patient or Established: Established Patient (seen at [facility] within 3 years) Reason for Visit:: OBC Seen by Clinical Staff ONLY (RN/MA): No Sizing Sprayer Required: No Do You Feel Safe at Home: Yes Authorities Contacted: N/A PCP or OBGYN visit in last 3 months: Yes Date of Last PCP or OBGYN visit: 12/31/24 Hx Now: Yes Are you currently on any form of Control: No Pain Present Currently: No Pain Scale Used: De Leon-Villareal/Numerical Pain scale:: 0 Smoking Status Smoking Status: Never smoker Immunizations Flu Vaccine in the Last 12 Months: No Flu Vaccine Exclusion Criteria: No Exclusion Criteria Questionnaires Covid-19 Vaccine Questionnaire Has patient been vacinated for Covid-19 Have you been vacinated for Covid-19: No PHQ-9 PHQ-2 Over the last 2 weeks, how often have you been bothered by any of the following problems? 1. Little interest or pleasure in doing things: not at all 2. Feeling down, depressed, or hopeless: not at all Total score: 0 PHQ-9 3. Trouble falling or staying asleep, or sleeping too much: Not at all 4. Feeling tired or having little energy: Not at all 5. Poor appetite or overeating: Not at all 6. Feeling bad about yourself - or that you are a failure or have let yourself or your family down: Not at all 7. Trouble concentrating on things, such as reading the newspaper or watching television: Not at all 8. Moving or speaking so slowly that other people could have noticed? - Or the opposite - being so fidgety or restless that you have been moving around a lot more than usual: not at all 9. Thoughts that you would be better off or of hurting yourself in some way: Not at all Total score: 0 If you checked off any problems, how difficult have these problems made it for you to do your work, take care of things at home, or get along with other people?: not difficult at all Source: Developed by Drs. Francisco German, Jasmin Machado, Daivd Anne and colleagues, with an educational marlon from [employer]. 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 IUP confirmed. NIPT pending. Labs reviewed: blood type O+, Ab screen neg, rubella immune, GC/CT neg, Hep B/C neg, RPR non-reactive. UA c/s positive for Enterococcus. Treat UTI per se nsitivity, continue routine OB care, review NIPT when available. 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 April- ry due to side effects (cold feet and hands) - Not currently on thyroid medication - Sleep apnea: - Recently diagnosed with mild sleep a pnea - Using CPAP machine - Reports history of PCOS - Start levothyroxine 50 mcg daily - Repeat thyroid function tests in 4 wee ks - Refer to maternal- medicine nela vang for thyroid management during - Add thyroid consult to existing appoin tment at [facility] on December 02 - Follow up in 4 weeks - Continue using CPAP machine for sleep apnea; adjust settings post-delivery - Manage PCOS in OB setting - Prescription to be filled at [facility] 12/02/24 -?-?-?-?-?-?-?-?-?-?-?-?- 21w 6d 87.09 kg 113/63 absent 145 at 21 weeks 6 days gestation, with ultrasound confirming appropriate growth (378 grams) and normal anatomy survey. Cervix measured 4.2 cm, indicating low risk for labor. Placenta posterior, no previa. position cephalic. Thyroid function tests reveal elevated TSH and low free T4, indicating suboptimal control of pre- existing hypothyroidism on current 50 mcg dose. Patient reports improved overall well-being. Rash noted on back, possibly heat-related or acne. History of sleep apnea managed with CPAP. heart rate 145 bpm. Plan - Recheck TSH, free T4, and A1c today - Lab slip provided for TSH, free T4, an d A1c - Follow-up ultrasound in 6 weeks - Follow-up appointment scheduled for [facility] - Follow-up in 4 weeks unless labs are a bnormal 12/31/24 -?-?-?-?-?-?-?-?-?-?-?-?- 26w 0d 89.471 kg 102/63 absent unknown 27 152 active - She reports being in the process of getting fitted for CPAP, having been contacted last week for the fitting. - Patient reports occasional episodes of lightheadedness. - She checks her blood pressure when f eeling lightheaded and notes it is usually on the lower end. - The lowest systolic blood pressure s he has recorded at home is 105 mmHg with diastolic readings ranging from 49-70 mmHg. - She reports good adherence to her pres cribed medications including levothyroxine, vitamins, and vitamin D. - Patient denies restricting salt intake and reports eating normal foods. - [facility] that could not be completed due to positioning. - Return for [facility] ultrasound on September 14, 2024 to complete anatomy survey - Continue current medications: levothyr oxine, vitamins, and vitamin D - Increase electrolyte and sodium intake , consider using liquid IV once daily - Maintain adequate fluid intake - Follow-up appointment in 4 weeks - Subsequent appointments will be every 2 weeks after the next visit - Labs to be done at next appointment MERI Calculator Estimated Delivery Date Method Current WG Current Estimate 04/08/25 LMP (Certain) 30w 2d Other Estimates 04/18/25 Ultrasound #1 28w 6d Specific Issue/Plans Laboratory, Imaging, and Diagnostic Test Results - Initial labs: - Blood group: O positive - Antibody screen: Negative - Hepatitis B: Negative - Hepatitis C: Negative - RPR: Non-reactive - Rubella: Immune - Gonorrhea: Negative - Chlamydia: Negative - NIPT: Performed (results not specified) - Urine culture: Positive for Enterococcus (sensitivity list available) Notes Visit Date: 12/31/24 Last Updated by: Otto Bruno MD Laboratory, Imaging, and Diagnostic Test Results - Hemoglobin A1c: 5.5 - TSH: 2.5 (target <4.5 in ) - Free T4: 0.78 - MFM ultrasound (September 08, 2024): - Single fetus at 20 weeks 3 days gestation - Composite gestational age by ultrasound: 20 weeks 6 days - Largest amniotic fluid pocket: 3.9 cm - Anatomy survey: within normal limits except suboptimal views due to position and maternal body habitus - Cervical length (transvaginal): 4.23 cm - Posterior placenta, no previa - Cephalic presentation - Normal uterus and adnexa Visit Date: 12/02/24 Last Updated by: Otto Bruno MD Dec 02 2024 - Ultrasound: - weight: 378 grams (appropriate for 21 weeks) - Anatomy survey: Normal - Cervix length: 4.2 cm - Placenta: Posterior, no previa - position: Head down - Uterus and ovaries: Normal - heart rate: 145 bpm Problem List - , 21 weeks and 6 days - Hypothyroidism - Sleep apnea - Abnormal thyroid function test Office Procedures OBC Clinic LOC & Office Proc's Nursing/Assessment Patient Status: Established Patient OB Clinic Nursing Assessment: Medication Reconciliation, Update PMH in EMR and Vital Signs OB Clinic Coordination of Care: Consent,records obtained, informed consent, Education Simp Pt/Fam, Lab and Imaging orders, Results/Orders obtained and Staff clarify orders Special Needs: Heart tones Established Patient Charge Established Patient Point Assignment: 110 Established Patient Point Charge: EP Level 3 (80-115) Assessment & Plan Diagnosis / Problem List (1) Hypothyroidism, unspecified: Status: Acute (2) Encounter for supervision of high risk in third trimester, antepartum: Status: Acute Plan Third trimester labs with TSH and T4. I refilled levothyroxine 50 mg daily. Discussed labor precautions. Patient has a follow-up with MFM in March scheduled. Return with OB in 3 weeks.
[2025-01-30 15:59] VITALS: BP 109/71; PULSE 82; RESP 18; TEMP 36.2; O2SAT 98; BMI 32.9
== END 2025-01-30 16:27 | disposition home or self-care (01) ==
LOC: HODSOBC 15:43
PROVIDERS: Supervising Provider Obstetrics & Gynecology; Visit Provider Obstetrics & Gynecology
DX: O09.893 Supervision of other high risk pregnancies, third trimester (principal); O99.283 Endocrine, nutritional and metabolic diseases complicating pregnancy, third trimester; E03.9 Hypothyroidism, unspecified; O99.353 Diseases of the nervous system complicating pregnancy, third trimester; G47.30 Sleep apnea, unspecified; Z3A.30 30 weeks gestation of pregnancy; Z79.890 Hormone replacement therapy; Z88.0 Allergy status to penicillin
CPT/HCPCS: 99213; G0463

== ENCOUNTER 2025-02-19 15:19 | Outpatient (AMB) | payer OTHER, MEDICAID, SELFPAY ==
[2025-02-19 15:40] VITALS: BP 123/74; PULSE 61; RESP 14; TEMP 36.4; O2SAT 98; BMI 33.5
--- NOTE | 2025-02-19 15:40 | OBCLNT_ITS ---
Vital Signs 02/19/25 15:40 Height 1.68 m Height Method Stated Weight 94.574 kg Weight Measurement Method Standing Scale BMI 33.5 BP 123/74 Blood Pressure Source Automatic Cuff Blood Pressure Location Left Upper Arm Position Sitting Respiration 14 Pulse 61 Pulse Source Monitor Temp 97.6 F Temp Source Oral Pulse Oximetry (%) 98 Oxygen Delivery Method Room Air Allergies/Home Meds Allergies & Medications Allergies Penicillins Allergy (Intermediate, Verified 02/19/25 15:41) FAINTS Medication Reconciliation levothyroxine 50 mcg tablet 50 mcg PO QDAY 30 days #30 tabs 02/19/25 [Rx] metronidazole 500 mg tablet 500 mg PO Q8H 3 days #9 tabs 02/19/25 [Rx] Immunizations Immunizations Flu Vaccine in the Last 12 Months: Yes Date of most recent flu vaccination: 02/19/25 Flu Vaccine Exclusion Criteria: Already Received Care OB Visit Log OB Flowsheet Initial Weight: Not Recorded Date -?-?-?-?-?-?-?-?--?-?-?-?- EGA Weight BP Alb Glu CTX Pres Fundal ht FHR Mov Dilation Station Effacement Hx Notes Visit Note 10/07/24 -?-?-?-?-?-?-?-?-?-?-?-?- 13w 6d 83.178 kg 111/72 145 13w6d here for routine visit. IUP confirmed. NIPT pending. Labs reviewed: blood type O+, Ab screen neg, rubella immune, GC/CT neg, Hep B/C neg, RPR non-reactive. UA c/s positive for Enterococcus. Treat UTI per se nsitivity, continue routine OB care, review NIPT when available. 11/04/24 -?-?-?-?-?-?-?-?-?-?-?-?- 17w 6d 86.296 kg 113/71 absent unknown 155 - Thyroid medication: - Stopped PHARMACY CONSULTANT Thyroid in April- ry due to side effects (cold feet and hands) - Not currently on thyroid medication - Sleep apnea: - Recently diagnosed with mild sleep a pnea - Using CPAP machine - Reports history of PCOS - Start levothyroxine 50 mcg daily - Repeat thyroid function tests in 4 wee ks - Refer to maternal- medicine speci alist for thyroid management during - Add thyroid consult to existing appoin tment at [facility] on December 02 - Follow up in 4 weeks - Continue using CPAP machine for sleep apnea; adjust settings post-delivery - Manage PCOS in OB setting - Prescription to be filled at [facility] on [address] 12/02/24 -?-?-?-?-?-?-?-?-?-?-?-?- 21w 6d 87.09 kg 113/63 absent 145 at 21 weeks 6 days gestation, with ultrasound confirming appropriate growth (378 grams) and normal anatomy survey. Cervix measured 4.2 cm, indicating low risk for labor. Placenta posterior, no previa. position cephalic. Thyroid function tests reveal elevated TSH and low free T4, indicating suboptimal control of pre- existing hypothyroidism on current 50 mcg dose. Patient reports improved overall well-being. Rash noted on back, possibly heat-related or acne. History of sleep apnea managed with CPAP. heart rate 145 bpm. Plan - Recheck TSH, free T4, and A1c today - Lab slip provided for TSH, free T4, an d A1c - Follow-up ultrasound in 6 weeks - Follow-up appointment scheduled for alma - Follow-up in 4 weeks unless labs are a bnormal 12/31/24 -?-?-?-?-?-?-?-?-?-?-?-?- 26w 0d 89.471 kg 102/63 absent unknown 27 152 active - She reports being in the process of getting fitted for CPAP, having been contacted last week for the fitting. - Patient reports occasional episodes of lightheadedness. - She checks her blood pressure when f eeling lightheaded and notes it is usually on the lower end. - The lowest systolic blood pressure s he has recorded at home is 105 mmHg with diastolic readings ranging from 49-70 mmHg. - She reports good adherence to her pres cribed medications including levothyroxine, vitamins, and vitamin D. - Patient denies restricting salt intake and reports eating normal foods. - She has a follow-up ultrasound sched ed for the for anatomy views that could not be completed due to positioning. - Return for [facility] ultrasound on September 14, 2024 to complete anatomy survey - Continue current medications: levothyr oxine, vitamins, and vitamin D - Increase electrolyte and sodium intake , consider using liquid IV once daily - Maintain adequate fluid intake - Follow-up appointment in 4 weeks - Subsequent appointments will be every 2 weeks after the next visit - Labs to be done at next appointment 01/30/25 -?-?-?-?-?-?-?-?-?-?-?-?- 30w 2d 93.043 kg 109/71 absent 30 153 ac tive Reports good movement. Denies leaking, bleeding, contractions. Patient wants to refill on her levothyroxine Third trimester labs today with an A1c and TSH and T4. Refill levothyroxine 50 mg daily. Was 60. Discussed labor precautions. Increase fluids. Return with OB in 3 weeks MERI Calculator Estimated Delivery Date Method Current WG Current Estimate 04/08/25 LMP (Certain) 33w 1d Other Estimates 04/18/25 Ultrasound #1 31w 5d 04/18/25 Ultrasound #2 31w 5d Specific Issue/Plans Laboratory, Imaging, and Diagnostic Test Results - Initial labs: - Blood group: O positive - Antibody screen: Negative - Hepatitis B: Negative - Hepatitis C: Negative - RPR: Non-reactive - Rubella: Immune - Gonorrhea: Negative - Chlamydia: Negative - NIPT: Performed (results not specified) - Urine culture: Positive for Enterococcus (sensitivity list available) Notes Visit Date: 12/31/24 Last Updated by: Otto Bruno MD Laboratory, Imaging, and Diagnostic Test Results - Hemoglobin A1c: 5.5 - TSH: 2.5 (target <4.5 in ) - Free T4: 0.78 - MFM ultrasound (September 08, 2024): - Single fetus at 20 weeks 3 days gestation - Composite gestational age by ultrasound: 20 weeks 6 days - Largest amniotic fluid pocket: 3.9 cm - Anatomy survey: within normal limits except suboptimal views due to position and maternal body habitus - Cervical length (transvaginal): 4.23 cm - Posterior placenta, no previa - Cephalic presentation - Normal uterus and adnexa Visit Date: 12/02/24 Last Updated by: Otto Bruno MD Dec 02 2024 - Ultrasound: - weight: 378 grams (appropriate for 21 weeks) - Anatomy survey: Normal - Cervix length: 4.2 cm - Placenta: Posterior, no previa - position: Head down - Uterus and ovaries: Normal - heart rate: 145 bpm Problem List - , 21 weeks and 6 days - Hypothyroidism - Sleep apnea - Abnormal thyroid function test Office Procedures OBC Clinic LOC & Office Proc's Nursing/Assessment Patient Status: Established Patient OB Clinic Nursing Assessment: Medication Reconciliation, Update PMH in EMR and Vital Signs OB Clinic Coordination of Care: Complex Care and Chronic Disease 1-5, Consent,re cords obtained, informed consent, Education Simp Pt/Fam, 1 Ins Authorization, Lab and Imaging orders, Results/Orders obtained and Staff clarify orders Special Needs: Heart tones Established Patient Charge Established Patient Point Assignment: 150 Injection/Vaccine Admin SQ Im Injection: Yes Immunizations flu vac ts (6mos up)-PF 45 mcg(15mcg x3)/0.5 mL IM syringe Performing Provider: Otto Bruno MD Performing Location: [facility] Administered by: Nurys Szymanski MA on 02/19/25 16:37 Dose Route Admin Location Dispensed Lot Number Expiration Date Pack age [facility] 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
== END 2025-02-19 16:16 | disposition home or self-care (01) ==
LOC: HODSOBC 15:19
PROVIDERS: Supervising Provider Obstetrics & Gynecology; Visit Provider Obstetrics & Gynecology
DX: O09.893 Supervision of other high risk pregnancies, third trimester (principal); O99.891 Other specified diseases and conditions complicating pregnancy; R19.7 Diarrhea, unspecified; O99.283 Endocrine, nutritional and metabolic diseases complicating pregnancy, third trimester; E03.9 Hypothyroidism, unspecified; Z3A.33 33 weeks gestation of pregnancy; Z23 Encounter for immunization; Z79.890 Hormone replacement therapy; Z88.0 Allergy status to penicillin
CPT/HCPCS: 90471; 90686; 96372; 99213; G0463; J9060

== ENCOUNTER 2025-03-09 03:59 | Emergency (ER) | payer OTHER, MEDICAID, SELFPAY ==
[2025-03-09 02:36] VITALS: BMI 35.9
[2025-03-09 02:38] VITALS: RESP 16; TEMP 36.8
[2025-03-09 02:55] VITALS: BP 133/76; PULSE 73; RESP 100; RESP 16; TEMP 36.8
[2025-03-09 04:10] VITALS: BMI 34.9
[2025-03-09 04:26] VITALS: BP 129/85; PULSE 62; RESP 18; TEMP 36.8; O2SAT 98
--- NOTE | 2025-03-09 04:42 | EKG_ITS ---
[facility] Test Date: 2025-03-09 Pat Name: FREDERICK LOPEZ Department: Room: - Gender: Female Medical Director: : 1990 Requested By: Corky Flores Order Number: [id number] Reading MD: Corky Flores Measurements Intervals [place] Rate: 63 P: 29 MS: 131 QRS: 89 QRSD: 96 T: 26 QT: 390 QTc: 401 Interpretive Statements SINUS RHYTHM Compared to ECG 11/29/2023 21:00:43 No significant changes /store/S0/[id number]/[id number].pdf
--- NOTE | 2025-03-09 04:45 | PD.EDRME ---
Rapid Medical Screening Exam RME Arrival date/time: 03/09/25 03:59 This is a case of 34-year-old female who came in in the emergency room due to shortness of breath and chest pain today patient is 34 weeks 4 para3 Chief Complaint: Flu Like Symptoms Time Seen by Provider: 03/09/25 04:38 Vital signs: Vital Signs Temperature 98.2 F 03/09/25 02:38 Respiratory Rate 16 03/09/25 02:38 Oxygen Delivery Method Room Air 03/09/25 02:38 Exam: Gravid uterus lungs sound is clear normal rate regular rhythm no murmur Clinical Impression: Shortness of breath chest pain
[2025-03-09 05:10] LABS: Basophils # (Auto) 0.0 Thou/mm3 (0.0-0.2); Basophils % (Auto) 0 % (0-2.5); Eosinophils # (Auto) 0.1 Thou/mm3 (0.0-0.5); Eosinophils % (Auto) 1 % (0-10); Hematocrit 36.9 % (36.0-46.0); Hemoglobin 11.9 g/dL (12.0-16.0); Immature Granulocytes Auto 0.02 Thou/mm3 (0.00-0.00); Lymphocytes # (Auto) 2.5 Thou/mm3 (1.0-4.8); Lymphocytes % (Auto) 33 % (10-50); Mean Corpuscular HGB Conc 32.2 g/dl (31.0-37.0); Mean Corpuscular Hemoglobin 29.0 pg (25.0-35.0); Mean Corpuscular Volume 90 fL (80-100); Monocytes # (Auto) 0.5 Thou/mm3 (0.0-0.8); Monocytes % (Auto) 6 % (0-12); Neutrophils # (Auto) 4.6 Thou/mm3 (1.8-7.7); Neutrophils % (Auto) 59 % (37-80); Nucleated Red Blood Cell # 0.00 Thou/mm3 (0.00-0.00); Nucleated Red Blood Cell % 0 /100 WBC (0); Platelet Count 236 Thou/mm3 (140-440); RDW Standard Deviation 43.8 fL (36.4-46.3); Red Blood Count 4.10 Miln/mm3 (4.00-5.20); White Blood Count 7.7 Thou/mm3 (3.6-11.0)
[2025-03-09 05:49] LABS: Alanine Aminotransferase < 7 U/L (10-49); Albumin, Serum 3.7 gm/dL (3.5-5.0); Albumin/Globulin Ratio 1.2 (1.2-2.2); Alkaline Phosphatase 96 U/L (46-116); Anion Gap 10 (7-16); Aspartate Amino Transferase 12 U/L (0-34); BUN/Creatinine Ratio 10 Ratio (12-20); Bilirubin,Total 0.3 mg/dL (0.3-1.2); Blood Urea Nitrogen 7 mg/dL (9-23); Calcium 9.3 mg/dL (8.3-10.6); Calcium (Corrected) 9.5 mg/dL (8.5-10.1); Carbon Dioxide 24.0 mMol/L (20.0-31.0); Chloride 105 mMol/L (98-107); Creatinine (Component) 0.7 mg/dL (0.6-1.3); Estimated Creatinine Clearance 131.7 mL/min (>60); Globulin 3.1 gm/dL (2.3-3.5); Glucose 96 mg/dL (74-106); Osmolality,Calculated 275 (275-295); Potassium 4.0 mMol/L (3.4-5.1); Sodium 139 mMol/L (136-145); Total Protein 6.8 gm/dL (5.7-8.2); Troponin I < 0.020 ng/mL (0.0-0.045); eGFR > 60 See Note
--- NOTE | 2025-03-09 06:25 | EDNOTE_ITS ---
ED General RME/HPI General Chief complaint: Flu Like Symptoms Stated complaint: LABOR EVALUATION Time Seen by Provider: 03/09/25 04:38 Arrival date/time: 03/09/25 03:59 RME / HPI RME / HPI narrative: 03/09/25 03:59 This is a case of 34-year-old female who came in in the emergency room due to shortness of breath and chest pain today patient is 34 weeks 4 para3 34-year-old female who is 34 weeks with history of asthma and hypothyroidism, presents with a 2-day history of shortness of breath mild cough and diarrhea this morning. She denies any current chest pain pressure tightness or heaviness. No history of blood clots in the past. Patient is 4 para 3. Exam: Gravid uterus lungs sound is clear normal rate regular rhythm no murmur Impression: Shortness of breath chest pain Related Data Home Medications ?Medication ?Instructions ?Recorded ?Confirmed albuterol sulfate 90 mcg/actuation 2 inh inhalation Q4 H PRN shortness 03/09/25 03/09/25 aerosol inhaler (Ventolin HFA) of breath or wheezing calcium phosphate,dibasic 77 1 tab PO DAILY 03/09/25 1 05/10/24 mg-vitamin D3 400 unit tablet prenat.vits,flory,fkm-uder-fcrsd 1 tab PO DAILY 03/09/25 03/09/25 Previous Rx's ?Medication ?Instructions ?Recorded levothyroxine 50 mcg tablet 50 mcg PO QDAY 30 days #30 tabs 02/19/25 Allergies Allergy/AdvReac Type Severity Reaction Status Date / Time Penicillins Allergy Intermediate FAINTS Verified 03/09/25 03:38 Review of Systems Review of Systems Systems Reviewed: All systems reviewed, normal except as documented Past Medical History Past Medical History RESPIRATORY: Positive Asthma GENITOURINARY: Positive Genitourinary Disorders (UTI'S) REPRODUCTIVE: Positive Previous Pregnancies ENDOCRINE: Positive Hypothyroidism PSYCHO/SOCIAL: Positive Anxiety OTHER HISTORY: Positive Hospitalization (CHILDBIRTH) and Chicken Pox Family History FAMILY HISTORY: Positive Family Respiratory Disorders (GRANDMOTHER: ASTHMA), Family Cardiac Disorders (SISTER HEART MURMUR, BROTHER (UNKNOWN)) and Family Gastrointestinal Problems (MOTHER-STOMACH ULCERS) Surgical History SURGICAL: Negative Section Social History SMOKING STATUS: Never smoker SECOND HAND EXPOSURE: No SUBSTANCE USE: does not use ED Exam Narrative Physical exam: Generally patient is alert not dyspneic or tachypneic with an O2 saturation of 98% on room air. Heart regular rate and rhythm, lungs clear to auscultation equal bilaterally, abdomen is gravid nontender, skin is warm pale and dry, extremities show no edema and capillary refill less than 2 seconds Course Quality Measures none Orders Category Date Time Status Place in Observation Status Routine Admission 03/09/25 02:36 Active Bedside COVID-19 Antigen Test NOW Care 03/09/25 06:24 Active Bedside Influenza A&B Antigen Test NOW Care 03/09/25 06:24 Completed Continuous Monitoring Routine Care 03/09/25 02:36 Ordered EKG (ED ONLY) *Do not use* NOW Care 03/09/25 04:43 Completed Non-Stress Test NOW Care 03/09/25 02:36 Active EKG (ED Only) Stat Exams 03/09/25 04:42 Draft ABO/RH Type Stat Lab 03/09/25 05:01 Completed CBC Stat Lab 03/09/25 05:01 Completed CMP [Comprehensive Metabolic Panel] Stat Lab 03/09/25 05:01 Completed D-Dimer Stat Lab 03/09/25 05:01 Completed Troponin I Stat Lab 03/09/25 05:01 Completed Urinalysis Stat Lab 03/09/25 06:00 Completed Vital Signs Vital signs: Vital Signs Temperature 98.2 F 03/09/25 02:38 Respiratory Rate 16 03/09/25 02:38 Oxygen Delivery Method Room Air 03/09/25 02:38 Discharge Plan Plan Patient Disposition: HOME (Self Care) Prescriptions/Referrals Prescriptions/Med Rec: No Action levothyroxine 50 mcg tablet 50 mcg PO QDAY 30 Days Qty: 30 6RF albuterol sulfate [Ventolin HFA] 90 mcg/actuation HFA aerosol inhaler 2 inh inhalation Q4H PRN (Reason: shortness of breath or wheezing) prenat.vits,flory,zoe-nxkv-wleqo Tablet 1 tab PO DAILY calcium phos,dibas-vitamin D3 77-400 mg-unit tablet 1 tab PO DAILY Referrals: Casimiro Kaur([facility])MD [Primary Care Provider, Family Practice] Problem List Clinical Impression: Dyspnea, Patient/Caregiver Discharge Instructions Other Activity Instructions:: Return to the OB department if you continue to have decreased or no movement. Take prescribed medications, as directed. Increase your fluid intake at home. Drink 10-12 bottles of water a day. Follow up with your OB provider at your next scheduled appointment. Additional Instructions: Return for worsening chest pain or shortness of breath. Continue current medications. Print Language: Afghan Stand Alone Forms: Winnie Award Info., Patient Portal Info Letter, Work/Release Restrictions MDM Narrative MDM hospital course (for use when minimal MDM required): I interpreted all labs. The workup was relatively unremarkable. Lungs are clear. Breathing is nonlabored. She is not tachypneic or tachycardic. O2 saturation is between 96 to 100% on room air. D-dimer slightly elevated at 655 with the upper end of normal here being 600. Through shared decision making, I discussed with the patient's the risks versus benefits of a CT angiogram of the chest. I think that the patient is low risk at this time of having a pulmonary embolism. Vital signs are stable without dyspnea or tachycardia. No tachypnea. Patient agrees with holding off on getting the CT angiogram of the chest at this time. She may return to the emergency room if condition worsens such as increasing chest pain or shortness of breath. Flu swabs are negative. COVID was negative. EKG shows normal sinus rhythm at a rate of 63 without right axis deviation. No ischemic changes. No ectopy. No change from previous EKG. Clinical Information Provided by: patient Medical Records reviewed [facility]
[2025-03-09 06:28] VITALS: BP 126/81; PULSE 97; RESP 20; TEMP 36.6; O2SAT 97
[2025-03-09 06:37] LABS: Collection Type, Urine Voided
[2025-03-09 07:24] LABS: Bilirubin,Urine Negative (Negative); Blood,Urine Negative (Negative); Clarity,Urine Clear (Clear/Hazy); Color,Urine Colorless (Lt Yel-Yel); Glucose, Urine Negative (Negative); Ketones,Urine Negative (Negative); Leukocyte Esterase,Urine Negative (Negative); Nitrite,Urine Negative (Negative); PH,Urine 6.5 (5.0-7.0); Protein,Urine Negative (Neg - Trace); RBC,Urine < 1 /hpf (0-3); Specific Gravity,Urine 1.008 (1.001-1.035); Squamous Epithelial Cell,Urine 1 /hpf (0-5); Urobilinogen,Urine Negative mg/dL (0.0-1.0); WBC,Urine < 1 /hpf (0-5)
[2025-03-09 07:40] LABS: D-Dimer 655 ng/mL (<600)
[2025-03-09 08:10] VITALS: BP 120/71; PULSE 63; RESP 16; TEMP 36.6; O2SAT 99
== END 2025-03-09 08:10 | disposition home or self-care (01) ==
LOC: SERX 04:21
PROVIDERS: Nurse Practitioner Family; Emergency Provider Emergency Medicine; PCP Family Medicine
DX: O99.513 Diseases of the respiratory system complicating pregnancy, third trimester (principal); R06.00 Dyspnea, unspecified; Z3A.34 34 weeks gestation of pregnancy
CPT/HCPCS: 36415; 59025; 80053; 81001; 84484; 84702; 85025; 85379; 86900; 86901; 87502; 87635; 93005; 99282

== ENCOUNTER 2025-03-10 14:55 | Outpatient (AMB) | payer OTHER, MEDICAID, SELFPAY ==
--- NOTE | 2025-03-10 15:20 | OBCLNT_ITS ---
Vital Signs 03/10/25 15:22 Height 1.65 m Height Method Stated Weight 96.729 kg Weight Measurement Method Standing Scale BMI 35.5 BP 115/75 Blood Pressure Source Automatic Cuff Blood Pressure Location Right Upper Arm Position Sitting Respiration 18 Pulse 63 Pulse Source Monitor Temp 97.8 F Temp Source Temporal Artery Scan Pulse Oximetry (%) 97 Oxygen Delivery Method Room Air Allergies/Home Meds Allergies & Medications Allergies Penicillins Allergy (Intermediate, Verified 03/10/25 15:22) FAINTS Medication Reconciliation levothyroxine 50 mcg tablet 50 mcg PO QDAY 30 days #30 tabs 02/19/25 [Rx Confirmed 03/10/25] albuterol sulfate 90 mcg/actuation aerosol inhaler (Ventolin HFA) 2 inh inhalation Q4H PRN shortness of breath or wheezing 03/09/25 [History Confirmed 03/10/25] calcium phosphate,dibasic 77 mg-vitamin D3 400 unit tablet 1 tab PO DAILY 03/09/25 [History Confirmed 03/10/25] prenat.vits,flory,qmd-lejc-idfde 1 tab PO DAILY 03/09/25 [History Confirmed 03/10/25] Immunizations Immunizations Flu Vaccine in the Last 12 Months: No Flu Vaccine Exclusion Criteria: No Exclusion Criteria Care OB Visit Log OB Flowsheet Initial Weight: Not Recorded Date -?-?-?-?-?-?-?-?-?-?-?-?- EGA Weight BP Alb Glu CTX Pres Fundal ht FHR Mov Dilation Station Effacement Hx Notes Visit Note 10/07/24 -?-?-?-?-?-?-?-?-?-?-?-?- 13w 6d 83.178 kg 111/72 145 13w6d here for routine visit. IUP confirmed. NIPT pending. Labs reviewed: blood type O+, Ab screen neg, rubella immune, GC/CT neg, Hep B/C neg, RPR non-reactive. UA c/s positive for Enterococcus. Treat UTI per se nsitivity, continue routine OB care, review NIPT when available. 11/04/24 -?-?-?-?-?-?-?-?-?-?-?-?- 17w 6d 86.296 kg 113/71 absent unknown 155 - Thyroid medication: - Stopped [employer] Thyroid in April- ry due to side effects (cold feet and hands) - Not currently on thyroid medication - Sleep apnea: - Recently diagnosed with mild sleep a pnea - Using CPAP machine - Reports history of PCOS - Start levothyroxine 50 mcg daily - Repeat thyroid function tests in 4 wee ks - Refer to maternal- medicine speci ciera for thyroid management during - Add thyroid consult to existing appoin tment at [facility] on December 02 - Follow up in 4 weeks - Continue using CPAP machine for sleep apnea; adjust settings post-delivery - Manage PCOS in OB setting - Prescription to be filled at [facility] 12/02/24 -?-?-?-?-?-?-?-?-?-?-?-?- 21w 6d 87.09 kg 113/63 absent 145 at 21 weeks 6 days gestation, with ultrasound confirming appropriate growth (378 grams) and normal anatomy survey. Cervix measured 4.2 cm, indicating low risk for labor. Placenta posterior, no previa. position cephalic. Thyroid function tests reveal elevated TSH and low free T4, indicating suboptimal control of pre- existing hypothyroidism on current 50 mcg dose. Patient reports improved overall well-being. Rash noted on back, possibly heat-related or acne. History of sleep apnea managed with CPAP. heart rate 145 bpm. Plan - Recheck TSH, free T4, and A1c today - Lab slip provided for TSH, free T4, an d A1c - Follow-up ultrasound in 6 weeks - Follow-up appointment scheduled for alma 15 - Follow-up in 4 weeks unless labs are a bnormal 12/31/24 -?-?-?-?-?-?-?-?-?-?-?-?- 26w 0d 89.471 kg 102/63 absent unknown 27 152 active - She reports being in the process of getting fitted for CPAP, having been contacted last week for the fitting. - Patient reports occasional episodes of lightheadedness. - She checks her blood pressure when f eeling lightheaded and notes it is usually on the lower end. - The lowest systolic blood pressure s he has recorded at home is 105 mmHg with diastolic readings ranging from 49-70 mmHg. - She reports good adherence to her pres cribed medications including levothyroxine, vitamins, and vitamin D. - Patient denies restricting salt intake and reports eating normal foods. - She has a follow-up ultrasound sched ed for the for anatomy views that could not be completed due to positioning. - Return for [facility] ultrasound on September 14, 2024 to complete anatomy survey - Continue current medications: levothyr oxine, vitamins, and vitamin D - Increase electrolyte and sodium intake , consider using liquid IV once daily - Maintain adequate fluid intake - Follow-up appointment in 4 weeks - Subsequent appointments will be every 2 weeks after the next visit - Labs to be done at next appointment 01/30/25 -?-?-?-?-?-?-?-?-?-?-?-?- 30w 2d 93.043 kg 109/71 absent 30 153 ac tive Reports good movement. Denies leaking, bleeding, contractions. Patient wants to refill on her levothyroxine Third trimester labs today with an A1c and TSH and T4. Refill levothyroxine 50 mg daily. Was 60. Discussed labor precautions. Increase fluids. Return with OB in 3 weeks 03/10/25 -?-?-?-?-?-?-?-?-?-?-?-?- 35w 6d 96.729 kg 115/75 absent cephalic 35 154 active Reports good movement. Denies leaking, bleeding, contractions. Reviewed TSH and T4 that were in normal range. Reports that breathing is normal and baby is active. Discussed labor precautions. Kick count twice a day. I reviewed parameters with patient. Discussed comfort measures to help with breathing such as sitting up and using a pillow to turn her to the side. GBS today. And return in a week OB check. And we did TSH T4 free T Discussed labor precautions. Kick count twice a day. I reviewed parameters with patient. Discussed comfort measures to help with breathing such as sitting up and using a pillow to turn her to the side. GBS today. And return in a week OB check. And we did TSH T4 free T, GBS MERI Calculator Estimated Delivery Date Method Current WG Current Estimate 04/08/25 LMP (Certain) 35w 6d Other Estimates 04/18/25 Ultrasound #1 34w 3d 04/18/25 Ultrasound #2 34w 3d Specific Issue/Plans Laboratory, Imaging, and Diagnostic Test Results - Initial labs: - Blood group: O positive - Antibody screen: Negative - Hepatitis B: Negative - Hepatitis C: Negative - RPR: Non-reactive - Rubella: Immune - Gonorrhea: Negative - Chlamydia: Negative - NIPT: Performed (results not specified) - Urine culture: Positive for Enterococcus (sensitivity list available) Notes Visit Date: 03/10/25 Last Updated by: Moriah Pfeiffer CNM thyroid: TSH:3.1, free T: 0.83, A1: 5.6, 1 hr gtt: wnl Visit Date: 12/31/24 Last Updated by: Otto Bruno MD Laboratory, Imaging, and Diagnostic Test Results - Hemoglobin A1c: 5.5 - TSH: 2.5 (target <4.5 in ) - Free T4: 0.78 - MFM ultrasound (September 08, 2024): - Single fetus at 20 weeks 3 days gestation - Composite gestational age by ultrasound: 20 weeks 6 days - Largest amniotic fluid pocket: 3.9 cm - Anatomy survey: within normal limits except suboptimal views due to position and maternal body habitus - Cervical length (transvaginal): 4.23 cm - Posterior placenta, no previa - Cephalic presentation - Normal uterus and adnexa Visit Date: 12/02/24 Last Updated by: Otto Bruno MD Dec 02 2024 - Ultrasound: - weight: 378 grams (appropriate for 21 weeks) - Anatomy survey: Normal - Cervix length: 4.2 cm - Placenta: Posterior, no previa - position: Head down - Uterus and ovaries: Normal - heart rate: 145 bpm Problem List - , 21 weeks and 6 days - Hypothyroidism - Sleep apnea - Abnormal thyroid function test Office Procedures OBC Clinic LOC & Office Proc's Nursing/Assessment Patient Status: Established Patient OB Clinic Nursing Assessment: Medication Reconciliation, Update PMH in EMR and Vital Signs OB Clinic Coordination of Care: Complex Care and Chronic Disease 1-5, Education Complex Pt/Fam, Consent,records obtained, informed consent, Lab and Imaging orders, Results/Orders obtained and Staff clarify orders Special Needs: Heart tones Miscellaneous Interventions: Culture Specimen Collection Established Patient Charge Established Patient Point Assignment: 155 Established Patient Point Charge: EP Level 4 (120-155) Assessment & Plan Diagnosis / Problem List (1) Encounter for supervision of high risk in third trimester, antepartum: Status: Acute Plan TSH, free T and T4 today. Discussed labs. Comfort measures for difficult respirations especially at night. Discussed kick count twice a day. Increase fluids. Continue levothyroxine 50 mg. Return in a week for OB check. GBS today Additional Plan Follow Up: 4 Weeks (obc)
[2025-03-10 15:22] VITALS: BP 115/75; PULSE 63; RESP 18; TEMP 36.6; O2SAT 97; BMI 35.5
== END 2025-03-10 15:32 | disposition home or self-care (01) ==
LOC: HODSOBC 14:55
PROVIDERS: Supervising Provider Advanced Practice Midwife; Visit Provider Advanced Practice Midwife
DX: O09.893 Supervision of other high risk pregnancies, third trimester (principal); O99.283 Endocrine, nutritional and metabolic diseases complicating pregnancy, third trimester; E03.9 Hypothyroidism, unspecified; O99.353 Diseases of the nervous system complicating pregnancy, third trimester; G47.30 Sleep apnea, unspecified; Z3A.35 35 weeks gestation of pregnancy; Z79.890 Hormone replacement therapy; Z88.0 Allergy status to penicillin
CPT/HCPCS: 99214; G0463

== ENCOUNTER 2025-03-20 09:39 | Outpatient (AMB) | payer OTHER, MEDICAID, SELFPAY ==
[2025-03-20 10:31] VITALS: BP 111/74; PULSE 68; RESP 14; TEMP 36.8; O2SAT 96; BMI 36.0
--- NOTE | 2025-03-20 10:31 | OBCLNT_ITS ---
Vital Signs 03/20/25 10:31 Height 1.65 m Height Method Stated Weight 98.146 kg Weight Measurement Method Standing Scale BMI 36.0 BP 111/74 Blood Pressure Source Automatic Cuff Blood Pressure Location Left Upper Arm Position Sitting Respiration 14 Pulse 68 Pulse Source Monitor Temp 98.2 F Temp Source Oral Pulse Oximetry (%) 96 Oxygen Delivery Method Room Air Allergies/Home Meds Allergies & Medications Allergies Penicillins Allergy (Intermediate, Verified 03/20/25 10:33) FAINTS Medication Reconciliation levothyroxine 50 mcg tablet 50 mcg PO QDAY 30 days #30 tabs 02/19/25 [Rx Confirmed 03/20/25] albuterol sulfate 90 mcg/actuation aerosol inhaler (Ventolin HFA) 2 inh inhalation Q4H PRN shortness of breath or wheezing 03/09/25 [History Confirmed 03/20/25] calcium phosphate,dibasic 77 mg-vitamin D3 400 unit tablet 1 tab PO DAILY 03/09/25 [History Confirmed 03/20/25] prenat.vits,flory,qbr-[id number]-[id number] 1 tab PO DAILY 03/09/25 [History Confirmed 03/20/25] Immunizations Immunizations Flu Vaccine in the Last 12 Months: Yes Flu Vaccine Exclusion Criteria: Already Received Care OB Visit Log OB Flowsheet Initial Weight: Not Recorded Date -?-?-?-?-?-?-?-?-?-?-?-?- EGA Weight BP Alb Glu CTX Pres Fundal ht FHR Mov Dilation Station Effacement Hx Notes Visit Note 10/07/24 -?-?-?-?-?-?-?-?-?-?-?-?- 13w 6d 83.178 kg 111/72 145 13w6d here for routine visit. IUP confirmed. NIPT pending. Labs reviewed: blood type O+, Ab screen neg, rubella immune, GC/CT neg, Hep B/C neg, RPR non-reactive. UA c/s positive for Enterococcus. Treat UTI per se nsitivity, continue routine OB care, review NIPT when available. 11/04/24 -?-?-?-?-?-?-?-?-?-?-?-?- 17w 6d 86.296 kg 113/71 absent unknown 155 - Thyroid medication: - Stopped [employer] Thyroid in April- ry due to side effects (cold feet and hands) - Not currently on thyroid medication - Sleep apnea: - Recently diagnosed with mild sleep a pnea - Using CPAP machine - Reports history of PCOS - Start levothyroxine 50 mcg daily - Repeat thyroid function tests in 4 wee ks - Refer to maternal- medicine speci ciera for thyroid management during - Add thyroid consult to existing appoin tment at [facility] on December 02 - Follow up in 4 weeks - Continue using CPAP machine for sleep apnea; adjust settings post-delivery - Manage PCOS in OB setting - Prescription to be filled at [facility] 12/02/24 -?-?-?-?-?-?-?-?--?-?-?-?- 21w 6d 87.09 kg 113/63 absent 145 at 21 weeks 6 days gestation, with ultrasound confirming appropriate growth (378 grams) and normal anatomy survey. Cervix measured 4.2 cm, indicating low risk for labor. Placenta posterior, no previa. position cephalic. Thyroid function tests reveal elevated TSH and low free T4, indicating suboptimal control of pre- existing hypothyroidism on current 50 mcg dose. Patient reports improved overall well-being. Rash noted on back, possibly heat-related or acne. History of sleep apnea managed with CPAP. heart rate 145 bpm. Plan - Recheck TSH, free T4, and A1c today - Lab slip provided for TSH, free T4, an d A1c - Follow-up ultrasound in 6 weeks - Follow-up appointment scheduled for alma 15 - Follow-up in 4 weeks unless labs are a bnormal 12/31/24 -?-?-?-?-?-?-?-?-?-?-?-?- 26w 0d 89.471 kg 102/63 absent unknown 27 152 active - She reports being in the process of getting fitted for CPAP, having been contacted last week for the fitting. - Patient reports occasional episodes of lightheadedness. - She checks her blood pressure when f eeling lightheaded and notes it is usually on the lower end. - The lowest systolic blood pressure s he has recorded at home is 105 mmHg with diastolic readings ranging from 49-70 mmHg. - She reports good adherence to her pres cribed medications including levothyroxine, vitamins, and vitamin D. - Patient denies restricting salt intake and reports eating normal foods. - She has a follow-up ultrasound sched ed for the for anatomy views that could not be completed due to positioning. - Return for [facility] ultrasound on September 14, 2024 to complete anatomy survey - Continue current medications: levothyr oxine, vitamins, and vitamin D - Increase electrolyte and sodium intake , consider using liquid IV once daily - Maintain adequate fluid intake - Follow-up appointment in 4 weeks - Subsequent appointments will be every 2 weeks after the next visit - Labs to be done at next appointment 01/30/25 -?-?-?-?-?-?-?-?-?-?-?-?- 30w 2d 93.043 kg 109/71 absent 30 153 ac tive Reports good movement. Denies leaking, bleeding, contractions. Patient wants to refill on her levothyroxine Third trimester labs today with an A1c and TSH and T4. Refill levothyroxine 50 mg daily. Was 60. Discussed labor precautions. Increase fluids. Return with OB in 3 weeks 03/10/25 -?-?-?-?-?-?-?-?-?-?-?-?- 35w 6d 96.729 kg 115/75 absent cephalic 35 154 active Reports good movement. Denies leaking, bleeding, contractions. Reviewed TSH and T4 that were in normal range. Reports that breathing is normal and baby is active. Discussed labor precautions. Kick count twice a day. I reviewed parameters with patient. Discussed comfort measures to help with breathing such as sitting up and using a pillow to turn her to the side. GBS today. And return in a week OB check. And we did TSH T4 free T Discussed labor precautions. Kick count twice a day. I reviewed parameters with patient. Discussed comfort measures to help with breathing such as sitting up and using a pillow to turn her to the side. GBS today. And return in a week OB check. And we did TSH T4 free T, GBS 03/20/25 -?-?-?-?-?-?-?-?-?-?-?-?- 37w 2d 98.146 kg 111/74 occasional cephalic 38 145 active - She reports experiencing some false contractions but notes they are not consistent. - She has been timing contractions ki nd of but is not necessarily keeping close track since they lack consistency. - She denies strong contractions, leakin g of fluid, or bleeding. - She continues taking her thyroid medic ation as prescribed. - Her Group B Streptococcus (GBS) culture from last week was negati ve. - Follow up in one week - Thyroid results to be reviewed at next appointment - Patient instructed to come to hospital if experiencing progressive contractions that get stronger, regular contractions every 5 minutes or closer, water breaking, or bleeding - Continue current levothyroxine therapy MERI Calculator Estimated Delivery Date Method Current WG Current Estimate 04/08/25 LMP (Certain) 37w 2d Other Estimates 04/18/25 Ultrasound #1 35w 6d 04/18/25 Ultrasound #2 35w 6d Specific Issue/Plans Laboratory, Imaging, and Diagnostic Test Results - Initial labs: - Blood group: O positive - Antibody screen: Negative - Hepatitis B: Negative - Hepatitis C: Negative - RPR: Non-reactive - Rubella: Immune - Gonorrhea: Negative - Chlamydia: Negative - NIPT: Performed (results not specified) - Urine culture: Positive for Enterococcus (sensitivity list available) Notes Visit Date: 03/10/25 Last Updated by: Moriah Pfeiffre CNM thyroid: TSH:3.1, free T: 0.83, A1: 5.6, 1 hr gtt: wnl Visit Date: 12/31/24 Last Updated by: Otto Bruno MD Laboratory, Imaging, and Diagnostic Test Results - Hemoglobin A1c: 5.5 - TSH: 2.5 (target <4.5 in ) - Free T4: 0.78 - [facility] ultrasound (September 08, 2024): - Single fetus at 20 weeks 3 days gestation - Composite gestational age by ultrasound: 20 weeks 6 days - Largest amniotic fluid pocket: 3.9 cm - Anatomy survey: within normal limits except suboptimal views due to position and maternal body habitus - Cervical length (transvaginal): 4.23 cm - Posterior placenta, no previa - Cephalic presentation - Normal uterus and adnexa Visit Date: 12/02/24 Last Updated by: Otto Bruno MD Dec 02 2024 - Ultrasound: - weight: 378 grams (appropriate for 21 weeks) - Anatomy survey: Normal - Cervix length: 4.2 cm - Placenta: Posterior, no previa - position: Head down - Uterus and ovaries: Normal - heart rate: 145 bpm Problem List - , 21 weeks and 6 days - Hypothyroidism - Sleep apnea - Abnormal thyroid function test Office Procedures [facility] Clinic LOC & Office Proc's Nursing/Assessment Patient Status: Established Patient OB Clinic Nursing Assessment: Medication Reconciliation, Update PMH in EMR and Vital Signs OB Clinic Coordination of Care: Complex Care and Chronic Disease 1-5, Consent,records obtained, informed consent, Education Simp Pt/Fam, 1 Ins Authorization, Lab and Imaging orders, Results/Orders obtained and Staff clarify orders Special Needs: Heart tones Established Patient Charge Established Patient Point Assignment: 150 Established Patient Point Charge: EP Level 4 (120-155) Assessment & Plan Diagnosis / Problem List (1) Encounter for supervision of high risk in third trimester, antepartum: Status: Acute Plan Problem List - Hypothyroidism - at 37 weeks and 2 days gestation Assessment 37-week and 2-day gravid patient with hypothyroidism on levothyroxine therapy. Group B Streptococcus culture obtained at last visit was negative. Patient reports irregular, inconsistent contractions without progressive pattern or regular timing. Recent laboratory work completed with glucose screening result of 155, which is within normal limits. Patient continues thyroid medication compliance with pending thyroid function test results. Plan - Follow up in one week - Thyroid results to be reviewed at next appointment - Patient instructed to come to hospital if experiencing progressive contractions that get stronger, regular contractions every 5 minutes or closer, water breaking, or bleeding - Continue current levothyroxine therapy 1. Progress Reviewed gestational age, growth, and heart rate. Planned frequent visits (every 2 weeks until 36 weeks, then weekly). 2. Instructed patient to monitor movements and report decreases immediately. 3. Testing Counseled on routine third-trimester labs per guidelines. Discussed potential need for ultrasound or monitoring based on risk factors. 4. Preeclampsia Precaution Educated on preeclampsia signs: severe headache, vision changes, right upper quadrant pain, sudden swelling. Advised urgent reporting of symptoms and discussed blood pressure monitoring if high risk. 5. Labor Precautions Reviewed labor signs: regular contractions, pelvic pressure, back pain, bleeding, or fluid leakage. Instructed to seek immediate care for these symptoms. 6. Lifestyle and Delivery Preparation Reinforced vitamins, nutrition, and safe activity. Discussed plan, pain management, and . Advised on labor preparation (e.g., hospital bag) and expectations. 7. Psychosocial Support Assessed emotional well-being and offered resources for mental health or parenting support.
== END 2025-03-20 10:40 | disposition home or self-care (01) ==
LOC: HODSOBC 09:39
PROVIDERS: Supervising Provider Obstetrics & Gynecology; Visit Provider Obstetrics & Gynecology
DX: O09.893 Supervision of other high risk pregnancies, third trimester (principal); O99.283 Endocrine, nutritional and metabolic diseases complicating pregnancy, third trimester; E03.9 Hypothyroidism, unspecified; Z3A.37 37 weeks gestation of pregnancy; Z79.890 Hormone replacement therapy; Z88.0 Allergy status to penicillin
CPT/HCPCS: 99214; G0463

== ENCOUNTER 2025-03-31 13:12 | Outpatient (AMB) | payer OTHER, MEDICAID, SELFPAY ==
[2025-03-31 13:20] VITALS: BP 128/83; PULSE 64; RESP 14; TEMP 36.5; O2SAT 97; BMI 36.8
--- NOTE | 2025-03-31 13:20 | OBCLNT_ITS ---
Vital Signs 03/31/25 13:20 Height 1.65 m Height Method Stated Weight 100.244 kg Weight Measurement Method Standing Scale BMI 36.8 BP 128/83 Blood Pressure Source Automatic Cuff Blood Pressure Location Left Upper Arm Position Sitting Respiration 14 Pulse 64 Pulse Source Monitor Temp 97.7 F Temp Source Oral Pulse Oximetry (%) 97 Oxygen Delivery Method Room Air Allergies/Home Meds Allergies & Medications Allergies Penicillins Allergy (Intermediate, Verified 03/31/25 13:20) FAINTS Medication Reconciliation levothyroxine 50 mcg tablet 50 mcg PO QDAY 30 days #30 tabs 02/19/25 [Rx Confirm ed 03/31/25] albuterol sulfate 90 mcg/actuation aerosol inhaler (Ventolin HFA) 2 inh inhalation Q4H PRN shortness of breath or wheezing 03/09/25 [History Confirmed 03/31/25] calcium phosphate,dibasic 77 mg-vitamin D3 400 unit tablet 1 tab PO DAILY 03/09/25 [History Confirmed 03/31/25] prenat.vits,flory,yct-brno-fflyx 1 tab PO DAILY 03/09/25 [History Confirmed 03/31/25] Immunizations Immunizations Flu Vaccine in the Last 12 Months: Yes Date of most recent flu vaccination: 02/19/25 Flu Vaccine Exclusion Criteria: Already Received Care OB Visit Log OB Flowsheet Initial Weight: Not Recorded Date -?-?-?-?-?-?-?-?-?-?-?-?- EGA Weight BP Alb Glu CTX Pres Fundal ht FHR Mov Dilation Station Effacement Hx Notes Visit Note 10/07/24 -?-?-?-?-?-?-?-?-?-?-?-?- 13w 6d 83.178 kg 111/72 145 13w6d here for routine visit. IUP confirmed. NIPT pending. Labs reviewed: blood type O+, Ab screen neg, rubella immune, GC/CT neg, Hep B/C neg, RPR non-reactive. UA c/s positive for Enterococcus. Treat UTI per se nsitivity, continue routine OB care, review NIPT when available. 11/04/24 -?-?-?-?-?-?-?-?-?-?-?-?- 17w 6d 86.296 kg 113/71 absent unknown 155 - Thyroid medication: - Stopped [employer] Thyroid in April- ry due to side effects (cold feet and hands) - Not currently on thyroid medication - Sleep apnea: - Recently diagnosed with mild sleep a pnea - Using CPAP machine - Reports history of PCOS - Start levothyroxine 50 mcg daily - Repeat thyroid function tests in 4 wee ks - Refer to maternal- medicine speci ali for thyroid management during - Add thyroid consult to existing appoin tment at [facility] [place] on December 02 - Follow up in 4 weeks - Continue using CPAP machine for sleep apnea; adjust settings post-delivery - Manage PCOS in OB setting - Prescription to be filled at [facility] on [facility] 12/02/24 -?-?-?-?-?-?-?-?-?-?-?-?- 21w 6d 87.09 kg 113/63 absent 145 at 21 weeks 6 days gestation, with ultrasound confirming appropriate growth (378 grams) and normal anatomy survey. Cervix measured 4.2 cm, indicating low risk for labor. Placenta posterior, no previa. position cephalic. Thyroid function tests reveal elevated TSH and low free T4, indicating suboptimal control of pre- existing hypothyroidism on current 50 mcg dose. Patient reports improved overall well-being. Rash noted on back, possibly heat-related or acne. History of sleep apnea managed with CPAP. heart rate 145 bpm. Plan - Recheck TSH, free T4, and A1c today - Lab slip provided for TSH, free T4, an d A1c - Follow-up ultrasound in 6 weeks - Follow-up appointment scheduled for Nghia marquez 15 - Follow-up in 4 weeks unless labs are a bnormal 12/31/24 -?-?-?-?-?-?-?-?-?-?-?-?- 26w 0d 89.471 kg 102/63 absent unknown 27 152 active - She reports being in the process of getting fitted for CPAP, having been contacted last week for the fitting. - Patient reports occasional episodes of lightheadedness. - She checks her blood pressure when f eeling lightheaded and notes it is usually on the lower end. - The lowest systolic blood pressure s he has recorded at home is 105 mmHg with diastolic readings ranging from 49-70 mmHg. - She reports good adherence to her pres cribed medications including levothyroxine, vitamins, and vitamin D. - Patient denies restricting salt intake and reports eating normal foods. - She has a follow-up ultrasound sched ed for the for anatomy views that could not be completed due to positioning. - Return for [facility] ultrasound on September 14, 2024 to complete anatomy survey - Continue current medications: levothyr oxine, vitamins, and vitamin D - Increase electrolyte and sodium intake , consider using liquid IV once daily - Maintain adequate fluid intake - Follow-up appointment in 4 weeks - Subsequent appointments will be every 2 weeks after the next visit - Labs to be done at next appointment 01/30/25 -?-?-?-?-?-?-?-?-?-?-?-?- 30w 2d 93.043 kg 109/71 absent 30 153 ac tive Reports good movement. Denies leaking, bleeding, contractions. Patient wants to refill on her levothyroxine Third trimester labs today with an A1c and TSH and T4. Refill levothyroxine 50 mg daily. Was 60. Discussed labor precautions. Increase fluids. Return with OB in 3 weeks 02/19/25 -?-?-?-?-?-?-?-?-?-?-?-?- 33w 1d 94.574 kg 123/74 absent cephalic 33 152 active - She reports experiencing loose, watery stools occurring multiple times daily for the past week. - Describes stools as extremely loose or watery - Episodes occur multiple times per da y - Not associated with eating specific foods - Reports this has been really uncomf ortable - She continues taking her thyroid medic ation daily at 5-6 AM, waiting one hour before eating. - Current medications include v itamins, vitamin D, and probiotics. - She recently received a flu shot. - She reports she was unable to obtain a CPAP machine as previously discussed. - Start 3-day course of antibiotics for loose stools that have been occurring daily for the past week - Temporarily discontinue probiotic unti l antibiotic course is completed, then resume probiotic - Continue current thyroid medication re gimen (taking daily at 5-6 AM, waiting one hour before eating) - Continue vitamins and vitamin D - Follow up in 2 weeks - Call if diarrhea does not resolve afte r antibiotic course for further management 03/10/25 -?-?-?-?-?-?-?-?-?-?-?-?- 35w 6d 96.729 kg 115/75 absent cephalic 35 154 active Reports good movement. Denies leaking, bleeding, contractions. Reviewed TSH and T4 that were in normal range. Reports that breathing is normal and baby is active. Discussed labor precautions. Kick count twice a day. I reviewed parameters with patient. Discussed comfort measures to help with breathing such as sitting up and using a pillow to turn her to the side. GBS today. And return in a week OB check. And we did TSH T4 free T Discussed labor precautions. Kick count twice a day. I reviewed parameters with patient. Discussed comfort measures to help with breathing such as sitting up and using a pillow to turn her to the side. GBS today. And return in a week OB check. And we did TSH T4 free T, GBS 03/20/25 -?-?-?-?-?-?-?-?-?-?-?-?- 37w 2d 98.146 kg 111/74 occasional cephalic 38 145 active - She reports experiencing some false contractions but notes they are not consistent. - She has been timing contractions ki nd of but is not necessarily keeping close track since they lack consistency. - She denies strong contractions, leakin g of fluid, or bleeding. - She continues taking her thyroid medic ation as prescribed. - Her Group B Streptococcus (GBS) culture from last week was negati ve. - Follow up in one week - Thyroid results to be reviewed at next appointment - Patient instructed to come to hospital if experiencing progressive contractions that get stronger, regular contractions every 5 minutes or closer, water breaking, or bleeding - Continue current levothyroxine therapy 03/31/25 -?-?-?-?-?-?-?-?-?-?-?-?- 38w 6d 100.244 kg 128/83 occasional cephalic 39 155 active - She reports home blood pressure readings with systolic pressures in the 130s (no more than 135) and diastolic pressures varying between 74 and 94. - The highest reading was 135/94 - Elevated readings have been occurrin g in the evenings - She has been experiencing headaches th at triggered her to check her blood pressure. - Describes feeling a little off - Headaches were unilateral - Associated with nausea when headache s occurred - She reports right upper quadrant pain yesterday that felt like muscle pain from cleaning all day, similar to having done sit-ups. - She denies visual floaters or flutters . - She denies recent nausea or vomiting o utside of episodes associated with headaches. - Recent thyroid labs showed a low T4 le bravo of 0.7 (described as moderately low) with a normal TSH in the 5-svbzv-drpzpwgqr range. - Patient to go to Labor and Delivery (4th floor) for preeclampsia workup including serial blood pressures every 15 minutes and preeclampsia panel - Patient may go home and return at 4 PM after childcare arrangements, but should not delay workup significantly - If blood pressures remain persistently elevated after 37 weeks gestation, induction will be necessary - No changes to current levothyroxine th erapy given TSH at goal late in ; repeat thyroid labs after delivery - Follow-up appointment scheduled with Maru viera next week as physician will be out of town - If patient admitted today, physician phan blair meet at hospital [facility] Calculator Estimated Delivery Date Method Current WG Current Estimate 04/08/25 LMP (Certain) 38w 6d Other Estimates 04/18/25 Ultrasound #1 37w 3d 04/18/25 Ultrasound #2 37w 3d Specific Issue/Plans Laboratory, Imaging, and Diagnostic Test Results - Initial labs: - Blood group: O positive - Antibody screen: Negative - Hepatitis B: Negative - Hepatitis C: Negative - RPR: Non-reactive - Rubella: Immune - Gonorrhea: Negative - Chlamydia: Negative - NIPT: Performed (results not specified) - Urine culture: Positive for Enterococcus (sensitivity list available) Notes Visit Date: 03/10/25 Last Updated by: Moriah Pfeiffer CNM thyroid: TSH:3.1, free T: 0.83, A1: 5.6, 1 hr gtt: wnl Visit Date: 02/19/25 Last Updated by: Otto Bruno MD Recent laboratory results: - Glucose: 135 mg/dL - RPR: Negative - Hemoglobin: 12.7 g/dL (no anemia noted) - Thyroid function tests: - TSH: 0.83 - Free T4: 9.6 - Noted as in range and better than last time Visit Date: 12/31/24 Last Updated by: Otto Bruno MD Laboratory, Imaging, and Diagnostic Test Results - Hemoglobin A1c: 5.5 - TSH: 2.5 (target <4.5 in ) - Free T4: 0.78 - MFM ultrasound (September 08, 2024): - Single fetus at 20 weeks 3 days gestation - Composite gestational age by ultrasound: 20 weeks 6 days - Largest amniotic fluid pocket: 3.9 cm - Anatomy survey: within normal limits except suboptimal views due to position and maternal body habitus - Cervical length (transvaginal): 4.23 cm - Posterior placenta, no previa - Cephalic presentation - Normal uterus and adnexa Visit Date: 12/02/24 Last Updated by: Otto Bruno MD Dec 02 2024 - Ultrasound: - weight: 378 grams (appropriate for 21 weeks) - Anatomy survey: Normal - Cervix length: 4.2 cm - Placenta: Posterior, no previa - position: Head down - Uterus and ovaries: Normal - heart rate: 145 bpm Problem List - , 21 weeks and 6 days - Hypothyroidism - Sleep apnea - Abnormal thyroid function test Office Procedures [facility] LOC & Office Proc's Nursing/Assessment Patient Status: Established Patient OB Clinic Nursing Assessment: Medication Reconciliation, Update PMH in EMR and Vital Signs OB Clinic Coordination of Care: Complex Care and Chronic Disease 1-5, Consent,records obtained, informed consent, Education Simp Pt/Fam, 1 Ins Authorization, Lab and Imaging orders, Results/Orders obtained and Staff clarify orders Special Needs: Heart tones Established Patient Charge Established Patient Point Assignment: 150 Established Patient Point Charge: EP Level 4 (120-155) Assessment & Plan Diagnosis / Problem List (1) Encounter for supervision of high risk in third trimester, antepartum: Status: Acute (2) Hypothyroidism affecting , antepartum: Status: Acute Plan Problem List - Preeclampsia - Hypothyroidism Assessment 34-year-old female at 38 weeks gestation presenting with elevated blood pressures concerning for preeclampsia, with home readings of 135/94 mmHg in the evenings and office reading of 128/80s mmHg, accompanied by unilateral headaches and associated nausea. Patient reports right upper quadrant discomfort yesterday described as muscle pain after cleaning activities. Patient has known hypothyroidism on levothyroxine therapy with recent labs showing low free T4 at 0.7 and TSH in the 3-point range. heart rate is reassuring at 149 bpm. Plan - Patient to go to Labor and Delivery (4th floor) for preeclampsia workup including serial blood pressures every 15 minutes and preeclampsia panel - Patient may go home and return at 4 PM after childcare arrangements, but should not delay workup significantly - If blood pressures remain persistently elevated after 37 weeks gestation, induction will be necessary - No changes to current levothyroxine therapy given TSH at goal late in ; repeat thyroid labs after delivery - Follow-up appointment scheduled with Moriah next week as physician will be out of town - If patient admitted today, physician will meet at hospital 1. Progress Reviewed gestational age at 38 weeks, growth, and heart rate of 149 bpm (normal). Planned frequent visits (every 2 weeks until 36 weeks, then weekly). 2. Instructed patient to monitor movements and report decreases im mediately. 3. Testing Counseled on routine third-trimester labs per guidelines. Discussed potential need for ultrasound or monitoring based on risk factors. 4. Preeclampsia Precaution Educated on preeclampsia signs: severe headache, vision changes, right upper quadrant pain, sudden swelling. Advised urgent reporting of symptoms and discussed blood pressure monitoring if high risk. 5. Labor Precautions Reviewed labor signs: regular contractions, pelvic pressure, back pain, bleeding, or fluid leakage. Instructed to seek immediate care for these symptoms. 6. Lifestyle and Delivery Preparation Reinforced vitamins, nutrition, and safe activity. Discussed plan, pain management, and . Advised on labor preparation (e.g., hospital bag) and expectations. 7. Psychosocial Support Assessed emotional well-being and offered resources for mental health or parenting support.
== END 2025-03-31 13:27 | disposition home or self-care (01) ==
LOC: HODSOBC 13:12
PROVIDERS: Supervising Provider Obstetrics & Gynecology; Visit Provider Obstetrics & Gynecology
DX: O09.893 Supervision of other high risk pregnancies, third trimester (principal); O99.283 Endocrine, nutritional and metabolic diseases complicating pregnancy, third trimester; E03.9 Hypothyroidism, unspecified; O99.891 Other specified diseases and conditions complicating pregnancy; R51.9 Headache, unspecified; R03.0 Elevated blood-pressure reading, without diagnosis of hypertension; Z3A.38 38 weeks gestation of pregnancy; Z88.0 Allergy status to penicillin; Z79.890 Hormone replacement therapy
CPT/HCPCS: 99214; G0463

== ENCOUNTER 2025-03-31 17:00 | Outpatient (CLI) | payer OTHER, MEDICAID, SELFPAY ==
[2025-03-31] VITALS (9 sets, daily range): BP systolic 119–149; BP diastolic 55–75; PULSE 55–72; RESP 18–99; TEMP 36.7; BMI 37.0
[2025-03-31 19:13] LABS: Basophils # (Auto) 0.0 Thou/mm3 (0.0-0.2); Basophils % (Auto) 0 % (0-2.5); Eosinophils # (Auto) 0.1 Thou/mm3 (0.0-0.5); Eosinophils % (Auto) 1 % (0-10); Hematocrit 36.6 % (36.0-46.0); Hemoglobin 12.1 g/dL (12.0-16.0); Immature Granulocytes Auto 0.02 Thou/mm3 (0.00-0.00); Lymphocytes # (Auto) 2.4 Thou/mm3 (1.0-4.8); Lymphocytes % (Auto) 32 % (10-50); Mean Corpuscular HGB Conc 33.1 g/dl (31.0-37.0); Mean Corpuscular Hemoglobin 29.7 pg (25.0-35.0); Mean Corpuscular Volume 90 fL (80-100); Monocytes # (Auto) 0.5 Thou/mm3 (0.0-0.8); Monocytes % (Auto) 6 % (0-12); Neutrophils # (Auto) 4.4 Thou/mm3 (1.8-7.7); Neutrophils % (Auto) 60 % (37-80); Nucleated Red Blood Cell # 0.00 Thou/mm3 (0.00-0.00); Nucleated Red Blood Cell % 0 /100 WBC (0); Platelet Count 215 Thou/mm3 (140-440); RDW Standard Deviation 44.4 fL (36.4-46.3); Red Blood Count 4.08 Miln/mm3 (4.00-5.20); White Blood Count 7.3 Thou/mm3 (3.6-11.0)
[2025-03-31 19:42] LABS: Alanine Aminotransferase < 7 U/L (10-49); Albumin, Serum 3.7 gm/dL (3.5-5.0); Albumin/Globulin Ratio 1.3 (1.2-2.2); Alkaline Phosphatase 108 U/L (46-116); Anion Gap 10 (7-16); Aspartate Amino Transferase 16 U/L (0-34); BUN/Creatinine Ratio 11 Ratio (12-20); Bilirubin,Total 0.2 mg/dL (0.3-1.2); Blood Urea Nitrogen 8 mg/dL (9-23); Calcium 8.7 mg/dL (8.3-10.6); Calcium (Corrected) 8.9 mg/dL (8.5-10.1); Carbon Dioxide 24.3 mMol/L (20.0-31.0); Chloride 106 mMol/L (98-107); Creatinine (Component) 0.7 mg/dL (0.6-1.3); Estimated Creatinine Clearance 134.7 mL/min (>60); Globulin 2.8 gm/dL (2.3-3.5); Glucose 87 mg/dL (74-106); LDH (Lactate Dehydrogenase) 147 U/L (120-246); Osmolality,Calculated 276 (275-295); Potassium 4.4 mMol/L (3.4-5.1); Sodium 140 mMol/L (136-145); Total Protein 6.5 gm/dL (5.7-8.2); Uric Acid 4.2 mg/dL (3.1-7.8); eGFR > 60 See Note
[2025-03-31 19:44] LABS: Creatinine,Random Urine 23 mg/dL (30-125); Protein Total, Random Urine < 6 mg/dL (1-14)
[2025-03-31 19:55] LABS: Fibrinogen 502 mg/dL (175-375); INR 0.9 (0.9-1.3); Partial Thromboplastin Time 26.6 Seconds (22.0-36.0); Prothrombin Time 9.6 Seconds (9.0-12.2)
== END 2025-03-31 20:25 | disposition home or self-care (01) ==
LOC: S4S1 17:03 → S4SX 17:04
PROVIDERS: Referring Provider Obstetrics & Gynecology; Visit Provider Obstetrics & Gynecology
DX: Z34.83 Encounter for supervision of other normal pregnancy, third trimester (principal); Z36.89 Encounter for other specified antenatal screening; Z3A.38 38 weeks gestation of pregnancy
CPT/HCPCS: 36415; 59025; 80053; 81001; 82570; 83615; 84156; 84550; 85025; 85384; 85610; 85730